=== PATIENT | male | born 1940 | race Caucasian/White ===

== ENCOUNTER → 2019-07-14 13:54 | Outpatient (BNVA) | payer MEDICARE, OTHER, SELFPAY | PROVIDERS: Family Provider Family Medicine; PCP Family Medicine; Visit Provider Specialist | DX: Z96.642 Presence of left artificial hip joint (principal) | CPT/HCPCS: 73502 ==

== ENCOUNTER 2022-04-12 11:16 | Inpatient (IN) | payer MEDICARE, OTHER, SELFPAY ==
[2022-04-12 11:25] VITALS: BP 111/58; PULSE 66; RESP 14; TEMP 36.6; O2SAT 94; BMI 23.7
--- NOTE | 2022-04-12 12:09 | XR_ITS ---
WS: [id number] EXAMINATION: XR chest 1V portable [id number] REASON FOR EXAM: dyspnea/cough COMPARISON: 12/21/2018 ORDER DATE: 04/12/2022 12:11 PM TECHNIQUE: A single, portable frontal chest x-ray was obtained. X-RAY FINDINGS: There is a prominent right lower lobe infiltrate and small parapneumonic pleural effusion. Cardiomediastinal silhouette is normal. No evidence for pulmonary edema. Soft tissue and osseous structures are unremarkable. No tubes or lines are present. XR/XR chest 1V portable [id number] IMPRESSION: Right lower lobe pneumonia with small effusion
--- NOTE | 2022-04-12 12:09 | CT_ITS ---
WS: [id number] EXAMINATION: CT head wo con* [id number] REASON FOR EXAM: closed head injury loss conscious COMPARISON: 10/20/2018 ORDER DATE: 04/12/2022 12:15 PM TOTAL EXAM DLP: 1218.[address] scans at [facility] use at least one of these dose optimization techniques: automated ex posure control; mA and/or kV adjustment per patient size (includes targeted exams where dose is match ed to clinical indication); or iterative reconstruction. TECHNIQUE: AXIAL IMAGING WITH 2-D REFORMATS WITHOUT CONTRAST FINDINGS: Extra axial spaces: Normal in size and morphology for the patient's age.. Hemorrhage: No evidence of subarachnoid hemorrhage. Ventricular system: Normal in size and morphology for the patient's age.. Basal cisterns: The basilar cisterns are patent.. Cerebral parenchyma: There is a hypodensity throughout the cortex of the anterior left temporal lobe with effacement of the sulci suggesting acute subacute edema Midline shift: No midline shift or mass effect. . Cerebellum: Normal. Brainstem: Normal. ORBITS/FACIAL BONES/OTHER: Calvarium: Intact. Chronic sclerotic change in the posterior right mastoid process Vascular system: Normal. Visualized Paranasal sinuses: Clear. Visualized Orbits and facial bones: Normal. Visualized upper cervical spine: Normal. Sella and skull base: Grossly intact. CT/CT head wo con* [id number] IMPRESSION: Acute to subacute infarction in the left anterior temporal lobe
--- NOTE | 2022-04-12 12:24 | ED_ITS ---
HPI - Weakness General: Chief complaint: Weakness Stated complaint: N/V, weakness, fall, headpain Time Seen by Provider: 04/12/22 12:04 Source: patient Mode of arrival: ambulatory History of Present Illness: 81-year-old male presents emergency room complaining nausea vomiting. Just generally not feeling well all day yesterday then last night patient fell when he got up to go to the bathroom around 1 AM. He was able to get himself back to bed but could not get up this morning. When he fell he struck his head without loss of bowel and bladder control. He is not having any chest discomfort. No shortness of breath no cough no fever. Does have a headache and generalized myalgias. No dysuria urgency or frequency no hematochezia or melena. No hematemesis. MD Complaint: generalized weakness Onset (ago): hour(s) Duration: constant Location: generalized Relieving factors: none Exacerbating factors: none Associated symptoms: Reports decreased appetite, headache(s), myalgias and nausea; Denies chest pain, chills, confusion, melena, diaphoresis, dysuria, easy bruising, fever(s), short of breath, syncope or vomiting Review of Systems Const: Denies: fever(s), chills or diaphoresis ENMT: Denies: throat pain, ear or mastoid pain, nasal discharge or nasal congestion Card: Denies: chest pain or syncope Resp: Denies: dyspnea, productive cough or non-productive cough GI: Reports: nausea; Denies: abdominal pain, vomiting or melena : Denies: dysuria, urinary frequency or urinary urgency Skin/Breast: Denies: rash or pruritus Neuro: Reports: headache(s); Denies: confusion Darci/Lymph: Denies: easy bruising PFS ED PFSH: Surgical History (Updated 07/15/19 @ 12:23 by Cherelle Taylor MD) History of total left hip arthroplasty History of total right hip arthroplasty Social History Smoking and tobacco status: never smoked Alcohol intake: never Physical Exam Const: GENERAL APPEARANCE: cooperative and comfortable ORIENTATIO N/CONSCIOUSNESS: Yes awake, Yes oriented to person, Yes oriented to place and Yes oriented to time HENMT: COMMON NORMALS: normocephalic, atraumatic and hearing grossly normal bilaterally HEAD & SCALP: normocephalic and atraumatic Resp: COMMON NORMALS: normal respiratory effort, No retractions, No use of accessory muscles and clear to auscultation bilaterally AUSCULTATION: clear to auscultation bilaterally Cardio: COMMON NORMALS: regular rate, regular rhythm and No murmurs present (Cardio) RATE: regular rate RHYTHM: regular rhythm GI: COMMON NORMALS: Soft to palpation and No hepatosplenomegaly present AUSCULTATION: Yes normoactive bowel sounds PALPATION: Yes Soft to palpation, No Tenderness to palpation present (GI), No Guarding due to palpation present (GI) and Yes No hepatosplenomegaly present Extremity: COMMON NORMALS: normal to inspection, capillary refill normal, no clubbing, cyanosis or edema, no calf tenderness and no pedal edema Neuro: SENSORIUM/ORIENTATION: Yes oriented to person, Yes oriented to place and Yes oriented to time Skin: COMMON NORMALS: no rashes or lesions noted GENERAL SKIN EXAM: no rashes or lesions noted Course Vital Signs: Vital signs: Vital Signs Temperature 97.8 F 04/12/22 11:25 Pulse Rate 66 04/12/22 11:25 Respiratory Rate 14 04/12/22 11:25 Blood Pressure 130/72 04/12/22 13:33 Pulse Oximetry 96 04/12/22 13:33 Oxygen Delivery Me thod 04/12/22 13:33 MDM - Weakness Medical Decision Making Patient has acute left temporal CVA. He has a stroke score at this point of 0. I thought he maybe had a little bit of right facial droop but his son confirms that is normal facial appearance he was has a little bit of droop in the right corner of his mouth that is not new otherwise rest of his NIH is 0. He has a large right lower lobe pneumonia with a white count of 23,000 cultures done will admit discussed with hospitalist orders written aspirin given evaluation for secondary stroke prevention needed inpatient. Medical Records I reviewed the patient's medical records. Lab Data I reviewed the patient's lab results. 04/12/22 12:45 04/12/22 12:45 Radiology Impressions Chest X-Ray 04/12/22 12:09 IMPRESSION: Right lower lobe pneumonia with small effusion Head CT 04/12/22 12:09 IMPRESSION: Acute to subacute infarction in the left anterior temporal lobe Laboratory Results WBC 23.6 10^3/uL (4.0-10.0) H 04/12/22 12:45 RBC 4.50 10^6/uL (4.1-5.3) 04/12/22 12:45 Hgb 13.0 g/dL (11.7-16.6) 04/12/22 12:45 Hct 40.0 % (42.0-52.0) L 04/12/22 12:45 MCV 88.9 fl (80-94) 04/12/22 12:45 MCH 28.9 pg (28.0-34.0) 04/12/22 12:45 MCHC 32.5 g/dL (30.0-36.0) 04/12/22 12:45 RDW 14.6 % (12.1-15.1) 04/12/22 12:45 Plt Count 271 10^3/cmm (130-400) 04/12/22 12:45 MPV 9.4 fL (7.4-10.4) 04/12/22 12:45 Neut % (Auto) 89.3 % 04/12/22 12:45 Lymph % (Auto) 5.2 % 04/12/22 12:45 [place] % (Auto) 4.5 % 04/12/22 12:45 Eos % (Auto) 0.0 % 04/12/22 12:45 Baso % (Auto) 0.3 % 04/12/22 12:45 Neut # (Auto) 21.06 10^3/uL (1.8-7.7) H 04/12/22 12:45 Lymph # (Auto) 1.2 10^3/uL (0.8-4.8) 04/12/22 12:45 [place] # (Auto) 1.1 10^3/uL (0.2-0.9) H 04/12/22 12:45 Eos # (Auto) 0.0 10^3/uL (0.0-0.8) 04/12/22 12:45 Baso # (Auto) 0.1 10^3/uL (0.0-0.1) 04/12/22 12:45 Nucleated RBC % (auto) 0 % 04/12/22 12:45 Nucleated RBCs # 0.0 /100WBC 04/12/22 12:45 Sodium 134 mmol/L (136-145) L 04/12/22 12:45 Potassium 3.8 mmol/L (3.5-5.1) 04/12/22 12:45 Chloride 97 mmol/L (98-107) L 04/12/22 12:45 Carbon Dioxide 28 mmol/L (22-29) 04/12/22 12:45 Anion Gap 12.8 (5-19) 04/12/22 12:45 BUN 18 mg/dL (8-23) 04/12/22 12:45 Creatinine 1.1 mg/dL (0.7-1.2) 04/12/22 12:45 GFR Calculation Not Reportable 04/12/22 12:45 Glucose 94 mg/dL (65-115) 04/12/22 12:45 Calculated Osmolality 280 mOsm/kg (285-295) L 04/12/22 12:45 Calcium 9.1 mg/dL (8.5-10.5) 04/12/22 12:45 Total Bilirubin 1.1 mg/dL (0.15-1.2) 04/12/22 12:45 AST 12 U/L (0-40) 04/12/22 12:45 ALT 8 U/L (0-41) 04/12/22 12:45 Alkaline Phosphatase 99 U/L (40-130) 04/12/22 12:45 Total Protein 6.9 g/dL (6.6-8.7) 04/12/22 12:45 Albumin 2.9 g/dL (3.5-5.2) L 04/12/22 12:45 Globulin 4.0 g/dL (1.3-4.6) 04/12/22 12:45 Discharge Plan Discharge Patient Disposition: Admitted As Inpatient Clinical Impression: Acute CVA (cerebrovascular accident), Right lower lobe pneumonia Condition: Stable Prescriptions: No Action ibuprofen 200 mg Tablet 400 mg PO Q6H PRN (Reason: Pain) atorvastatin 40 mg tablet 40 mg PO BEDTIME trazodone 100 mg tablet 100 mg PO BEDTIME Referrals: Gideon Yepez DO [Primary Care Provider] - Coding Level of Care Code ED Training And Development Specialist for g Fwd Exam Detailed NIH stroke score NIHSS Level Of Consciousness - 1a: 0 Level Of Consciousness Questions - 1b: Both Correct Level Of Consciousness Commands - 1c: Both Correct Best Gaze - 2: Normal Visual Garcia - 3: No Visual Loss Facial Palsy - 4: Normal Motor Arm Right - 5: No Drift Motor Arm Left - 5: No Drift Motor Leg Right - 6: No Drift Motor Leg Left - 6: No Drift Limb Ataxia - 7: Absent Sensory - 8: Normal Best Language - 9: No Aphasia Dysarthia - 10: Normal Extinction And Inattention - 11: 0 Score Total Score: 0
--- NOTE | 2022-04-12 12:40 | ECG_ITS ---
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 Measurements Intervals [place] Rate: 77 P: 55 HI: 170 QRS: 43 QRSD: 86 T: 40 QT: 389 QTc: 443 Interpretive Statements SINUS RHYTHM Compared to ECG 12/21/2018 08:44:06 Sinus bradycardia no longer present ST (T wave) deviation no longer present Electronically Signed On 04-12-2022 13:04:36 MILL BEAM FITTER by Rita Friedman M.D. [id number]
[2022-04-12 12:59] LABS: Basophils # 0.1 10^3/uL (0.0-0.1); Basophils % 0.3 %; Lymphocytes # 1.2 10^3/uL (0.8-4.8); Lymphocytes % 5.2 %; Mean Corpuscular HGB Conc 32.5 g/dL (30.0-36.0); Mean Corpuscular Hemoglobin 28.9 pg (28.0-34.0); Mean Corpuscular Volume 88.9 fl (80-94); Mean Platelet Volume 9.4 fL (7.4-10.4); Monocytes # 1.1 10^3/uL (0.2-0.9); Monocytes % 4.5 %; Neutrophils # 21.06 10^3/uL (1.8-7.7); Neutrophils % 89.3 %; Nucleated Red Blood Cells % 0 %; Platelet Count 271 10^3/cmm (130-400); Red Cell Distribution Width 14.6 % (12.1-15.1); White Blood Count 23.6 10^3/uL (4.0-10.0)
[2022-04-12 13:16] LABS: Alanine Aminotransferase 8 U/L (0-41); Albumin Level 2.9 g/dL (3.5-5.2); Alkaline Phosphatase 99 U/L (40-130); Anion Gap 12.8 (5-19); Aspartate Amino Transferase 12 U/L (0-40); Blood Urea Nitrogen 18 mg/dL (8-23); Calcium 9.1 mg/dL (8.5-10.5); Carbon Dioxide 28 mmol/L (22-29); Chloride 97 mmol/L (98-107); Glucose 94 mg/dL (65-115); Osmolality Calculated 280 mOsm/kg (285-295); Potassium 3.8 mmol/L (3.5-5.1); Sodium 134 mmol/L (136-145); Total Bilirubin 1.1 mg/dL (0.15-1.2); Total Protein 6.9 g/dL (6.6-8.7)
[2022-04-12 13:33] VITALS: BP 130/72; O2SAT 96
[2022-04-12 13:35] LABS: Add Urine Microscopic? NO; Charge for UA Resulting for Rev
[2022-04-12] MEDS: ondansetron 2 mg/ML SDV 2 mL 4 MG IVP ×2 (13:51→23:00)
[2022-04-12] MEDS: sodium chloride 0.9% 1,000 ML 999 ML IV (13:51)
[2022-04-12] MEDS: levofloxacin-dextrose 5 % 750 MG/150 ML PREMIX 100 MG IV (13:51)
[2022-04-12 14:02] LABS: Bilirubin Urine 2+ (Negative); Blood Urine Neg (Negative); Glucose Urine UA Norm (Normal); Ketones Urine 1+ (Negative); Leukocyte Esterase Urine Negative (Negative); Nitrate Urine Negative (Negative); Protein Urine Neg (Negative); Urine Appearance Clear (CLEAR); Urine Color Dark Yellow (Yellow); Urobilinogen Urine 4 mg/dL (Negative); pH Urine 5 (5-7)
[2022-04-12] MEDS: acetaminophen 500 mg Tablet 1000 MG PO (14:14)
[2022-04-12] MEDS: aspirin 81 mg Chew Tablet 324 MG PO (15:56)
[2022-04-12] MEDS: sodium chloride 0.9% 1,000 ML 100 ML IV (15:56)
--- NOTE | 2022-04-12 17:36 | P.HP_ITS ---
Providers/Chief Complaint Admitting Physician: Junaid Joshua MD Primary Care Provider: Gideon Yepez DO Chief Complaint: N/V, weakness, fall, headpain History of Present Illness Mike Ellison is a 81 year old male with a past medical history significant for osteoarthritis presented with nausea and emesis x2 days. He also reports that he fell going to the bathroom early this morning around 1 AM. He was able to get back to bed but can get up this morning. He reports that he did hit his head when he fell. He denies any loss of bowel or bladder control. Denies history of seizures. Denies chest pain. Denies any significant shortness of breath, cough, or fevers. Does endorse associated symptoms of generalized malaise and headache. Denies any dysuria, hematochezia or melena. He denies any focal weakness. Denies changes to speech. In the ED was found to have p neumonia throat throat. Review of Systems Narrative: A complete review of systems was obtained and is negative except as stated in HPI. Medications/Allergies Home Medications Medication Instructions Recorded Confirmed Last Taken Type atorvastatin 40 mg tablet 40 mg PO BEDTIME 04/12/22 04/12/22 04/11/22 History ibuprofen 200 mg tablet 400 mg PO Q6H PRN Pain 04/12/22 04/12/22 Unknown History trazodone 100 mg tablet 100 mg PO BEDTIME 04/12/22 04/12/22 04/11/22 History Allergies Allergy/AdvReac Type Severity Reaction Status Date / Time Penicillins Allergy Unknown Verified 04/12/22 12:18 PFSH Acute PFSH: Medical History Osteoarthritis Surgical History History of total left hip arthroplasty History of total right hip arthroplasty Family History (Updated 04/12/22 @ 17:46 by Junaid Joshua MD) Father Stroke Social History (Updated 04/12/22 @ 17:39 by Junaid Joshua MD) Smoking and tobacco status: never smoked Alcohol intake: never Substance/Drug Use: never Vitals/I&O/Wt Last Vital Signs Temp 97.8 F 04/12/22 11:25 Pulse 66 04/12/22 11:25 Resp 14 04/12/22 11:25 BP 130/72 04/12/22 13:33 Pulse Ox 96 04/12/22 13:33 O2 Del Method 04/12/22 16:39 04/12/22 04/12/22 04/12/22 06:59 14:59 22:59 Intake Total 1000 / 1000 150 / 1150 Balance 1000 / 1000 150 / 1150 Weight last 48 hrs Weight 79.379 kg Physical Exam Narrative: General: Patient is awake and alert. Head: Normocephalic. Atraumatic. EOM intact. He is hard of hearing. Neck: No JVD. Cardiovascular: RRR. No gallops. No murmurs. No peripheral edema. Lungs: Rhonchi in right lung base, no use of accessory muscles, no crackles or wheezes. Skin: No jaundice. No rashes. Abdomen: Normal bowel sounds, abdomen soft and nontender. Genito Urinary: Genital exam not performed since complaints not related. Rectal: Rectal exam not performed since no symptoms indicated blood loss. Extremities: No cyanosis or clubbing. Musculoskeletal: 5/5 strength, normal range of motion, no swollen or erythematous joints. Neurological: Moves all 4 extremities. No myoclonus. Data 04/12/22 12:45 04/12/22 12:45 Micro: Microbiology 04/12/22 13:52 Blood Culture - Preliminary Blood SPECIMEN COLLECTED 04/12/22 13:50 Blood Culture - Preliminary Blood SPECIMEN COLLECTED A&P Assessment and plan (1) Right lower lobe pneumonia: Status post levofloxacin and in the ED Strep urinary antigen ordered Legionella urinary antigen ordered Start ceftriaxone Start azithromycin Encourage pulmonary toilet (2) Acute CVA (cerebrovascular accident): Not a candidate for tPA Cardiac monitoring Loaded with aspirin Start aspirin 81 mg daily Load Plavix Start daily Plavix Continue high intensity statin Physical and Occupational Therapy (3) Physical deconditioning: This is likely secondary to his recent pneumonia PT/OT Treat underlying infection (4) Osteoarthritis: Continue home ibuprofen as needed Plan DVT prophylaxis: Lovenox CODE STATUS: Full code Attestations Medical Necessity Statement*: Patient requires admission for acute to subacute stroke as well as significant pneumonia with debility physical deconditioning requiring IV antibiotics and supportive care with expected hospitalization to cross treatment eyes. Coding Level of Care Code Acute Statistical Technician for Bisi Serrano Diagnoses Right lower lobe pneumonia J18.9 Acute CVA (cerebrovascular accident) I63.9 Physical deconditioning R53.81 Osteoarthritis M19.90
[2022-04-12 17:47] VITALS: BP 128/66; PULSE 86; RESP 17; TEMP 36.5; O2SAT 93
[2022-04-12] MEDS: cefTRIAXone 1,000 MG in sodium chloride 0.9% (plus) 50 ML 100 MG IV (17:48)
[2022-04-12] MEDS: clopidogrel 300 mg Tablet PO (17:48)
[2022-04-12] MEDS: enoxaparin 40 mg/0.4 mL Syringe SUBCUT (18:01)
[2022-04-12 20:00] VITALS: BP 105/56; PULSE 84; RESP 18; TEMP 36.8; O2SAT 93
[2022-04-12] MEDS: trazodone 100 mg Tablet PO (20:00)
[2022-04-12] MEDS: atorvastatin 40 mg Tablet PO (20:00)
[2022-04-12] MEDS: azithromycin 250 MG in sodium chloride 0.9% 250 ML IV (20:06)
[2022-04-12 22:00] VITALS: PULSE 97
[2022-04-13] VITALS (10 sets, daily range): BP systolic 106–133; BP diastolic 54–69; PULSE 72–108; RESP 15–22; TEMP 36.6–37.3; O2SAT 90–94
[2022-04-13] MEDS: sodium chloride 0.9% 1,000 ML 100 ML IV ×2 (02:52→18:29)
[2022-04-13 03:59] LABS: Basophils % 0.2 %; Hematocrit 37.4 % (42.0-52.0); Lymphocytes # 0.9 10^3/uL (0.8-4.8); Lymphocytes % 4.2 %; Mean Corpuscular HGB Conc 32.1 g/dL (30.0-36.0); Mean Corpuscular Hemoglobin 28.6 pg (28.0-34.0); Mean Corpuscular Volume 89.3 fl (80-94); Mean Platelet Volume 9.9 fL (7.4-10.4); Monocytes # 0.7 10^3/uL (0.2-0.9); Monocytes % 3.3 %; Neutrophils % 91.5 %; Nucleated Red Blood Cells % 0 %; Platelet Count 226 10^3/cmm (130-400); Red Blood Count 4.19 10^6/uL (4.1-5.3); Red Cell Distribution Width 14.8 % (12.1-15.1)
[2022-04-13 04:23] LABS: Blood Urea Nitrogen 18 mg/dL (8-23); Calcium 8.5 mg/dL (8.5-10.5); Carbon Dioxide 24 mmol/L (22-29); Chloride 100 mmol/L (98-107); Glucose 93 mg/dL (65-115); Magnesium 1.5 mg/dL (1.7-2.3); Osmolality Calculated 276 mOsm/kg (285-295); Phosphorus 1.8 mg/dL (2.5-4.5); Sodium 132 mmol/L (136-145)
[2022-04-13 04:25] LABS: Anion Gap 11.4 (5-19); Potassium 3.4 mmol/L (3.5-5.1)
[2022-04-13] MEDS: aspirin 81 mg EC Tablet PO (08:19)
[2022-04-13] MEDS: clopidogrel 75 mg Tablet PO (08:19)
[2022-04-13] MEDS: ibuprofen 200 mg Tablet 400 MG PO ×2 (08:20→20:29)
--- NOTE | 2022-04-13 10:42 | P.PN_ITS ---
Subjective Subjective: Patient endorses generalized fatigue but denies any focal weakness. Denies dysphagia. Denies cough or shortness of breath. Wants to be DNR. Medications: Reviewed: Yes Vitals/I&O/Wt Last Vital Signs Temp 99.2 F 04/13/22 07:18 Pulse 102 H 04/13/22 07:18 Resp 18 04/13/22 07:18 BP 111/54 04/13/22 07:18 Pulse Ox 94 04/13/22 07:18 O2 Del Method 04/13/22 07:18 O2 Flow Rate 1.5 04/13/22 07:18 04/12/22 04/13/22 04/13/22 22:59 06:59 14:59 Intake Total 450 / 1450 1000 / 2450 Output Total 550 / 550 175 / 175 Balance 450 / 1450 450 / 1900 -175 / -175 Weight last 48 hrs Weight 79.379 kg Physical Exam Narrative: General: Patient is awake and alert. Head: Normocephalic. Atraumatic. EOM intact. He is hard of hearing. Neck: No JVD. Cardiovascular: RRR. No gallops. No murmurs. No peripheral edema. Lungs: Rhonchi in right lung base, no use of accessory muscles, no crackles or wheezes. On room air. Skin: No jaundice. No rashes. Abdomen: Normal bowel sounds, abdomen soft and nontender. Genito Urinary: Genital exam not performed since complaints not related. Rectal: Rectal exam not performed since no symptoms indicated blood loss. Extremities: No cyanosis or clubbing. Musculoskeletal: 5/5 strength, normal range of motion, no swollen or erythematous joints. Neurological: Moves all 4 extremities. No myoclonus. Data 04/13/22 03:31 04/13/22 03:31 Micro: Microbiology 04/12/22 13:30 Legionella Urinary Antigen - Final Urine,Voided 04/12/22 13:52 Blood Culture - Preliminary Blood SPECIMEN COLLECTED 04/12/22 13:50 Blood Culture - Preliminary Blood SPECIMEN COLLECTED A&P Assessment and plan (1) Right lower lobe pneumonia: Marked leukocytosis Follow up strep and legionella urinary ag Continue ceftriaxone Continue azithromycin Encourage pulmonary toilet (2) Acute CVA (cerebrovascular accident): Continue aspirin Continue Plavix Continue high intensity statin Physical and Occupational Therapy (3) Physical deconditioning: This is likely secondary to his recent pneumonia PT/OT Treat underlying infection (4) Osteoarthritis: Continue home ibuprofen as needed Plan DVT prophylaxis: Lovenox CODE STATUS: Full code Attestations Medical Necessity Statement*: Patient requires ongoing hospitalization for IV antibiotics, telemetry and PT evaluation with expected hospitalization to cross two midnights. Coding Level of Care Code Acute Welder Apprentice Arc for [facility] Diagnoses Right lower lobe pneumonia J18.9 Acute CVA (cerebrovascular accident) I63.9 Physical deconditioning R53.81 Osteoarthritis M19.90
[2022-04-13] MEDS: oxyCODONE 5 mg IR Tab/Cap PO (11:49)
[2022-04-13 12:57] LABS: Total Bilirubin 0.9 mg/dL (0.15-1.2)
--- NOTE | 2022-04-13 16:28 | PC.OT ---
OT evaluation completed, services not indicated. Recommendation made to nursing for home safety evaluation with home discharge from hospital.
[2022-04-13] MEDS: vancomycin 1,000 MG in sodium chloride 0.9% 250 ML 250 MG IV (16:56)
[2022-04-13] MEDS: enoxaparin 40 mg/0.4 mL Syringe SUBCUT (18:30)
[2022-04-13] MEDS: cefTRIAXone 1,000 MG in sodium chloride 0.9% (plus) 50 ML 100 MG IV (18:30)
[2022-04-13] MEDS: acetaminophen 325 mg Tablet 650 MG PO (19:16)
[2022-04-13] MEDS: trazodone 100 mg Tablet PO (20:24)
[2022-04-13] MEDS: atorvastatin 40 mg Tablet PO (20:24)
[2022-04-13] MEDS: azithromycin 250 MG in sodium chloride 0.9% 250 ML IV (20:24)
[2022-04-14] VITALS (35 sets, daily range): BP systolic 98–145; BP diastolic 53–86; PULSE 70–142; RESP 18–34; TEMP 36.3–36.9; O2SAT 77–96
[2022-04-14] MEDS: vancomycin 1,000 MG in sodium chloride 0.9% 250 ML 250 MG IV ×2 (02:40→15:44)
--- NOTE | 2022-04-14 03:42 | ECG_ITS ---
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 Measurements Intervals [place] Rate: 126 P: 0 MA: 0 QRS: 79 QRSD: 90 T: -21 QT: 311 QTc: 452 Interpretive Statements ATRIAL FIBRILLATION WITH RAPID VENTRICULAR RESPONSE NONSPECIFIC ST & T-WAVE ABNORMALITY Compared to ECG 04/12/2022 12:40:13 T-wave abnormality now present Sinus rhythm no longer present Electronically Signed On 04-14-2022 12:53:12 MUSEUM SERVICE SCHEDULER by Félix Almonte M.D. [id number]
[2022-04-14 04:03] LABS: Basophils % 0.2 %; Eosinophils # 0.3 10^3/uL (0.0-0.8); Eosinophils % 1.7 %; Hematocrit 36.1 % (42.0-52.0); Hemoglobin 11.2 g/dL (11.7-16.6); Lymphocytes # 0.9 10^3/uL (0.8-4.8); Lymphocytes % 5.9 %; Mean Corpuscular Hemoglobin 28.4 pg (28.0-34.0); Mean Corpuscular Volume 91.4 fl (80-94); Mean Platelet Volume 9.9 fL (7.4-10.4); Monocytes # 0.6 10^3/uL (0.2-0.9); Neutrophils # 12.85 10^3/uL (1.8-7.7); Neutrophils % 87.5 %; Nucleated Red Blood Cells % 0 %; Platelet Count 226 10^3/cmm (130-400); Red Blood Count 3.95 10^6/uL (4.1-5.3); Red Cell Distribution Width 14.9 % (12.1-15.1); White Blood Count 14.7 10^3/uL (4.0-10.0)
[2022-04-14] MEDS: metoprolol tartrate 1 mg/1 mL SDV 5 mL 5 MG IVP (04:07)
[2022-04-14] MEDS: metoprolol tartrate 25 mg Tablet PO ×2 (04:10→17:16)
[2022-04-14 04:22] LABS: Alanine Aminotransferase 6 U/L (0-41); Alkaline Phosphatase 80 U/L (40-130); Anion Gap 8.3 (5-19); Aspartate Amino Transferase 9 U/L (0-40); Blood Urea Nitrogen 17 mg/dL (8-23); Calcium 8.5 mg/dL (8.5-10.5); Carbon Dioxide 25 mmol/L (22-29); Chloride 99 mmol/L (98-107); Globulin 3.9 g/dL (1.3-4.6); Glucose 106 mg/dL (65-115); Magnesium 1.9 mg/dL (1.7-2.3); Osmolality Calculated 270 mOsm/kg (285-295); Phosphorus 1.9 mg/dL (2.5-4.5); Potassium 3.3 mmol/L (3.5-5.1); Sodium 129 mmol/L (136-145); Total Bilirubin 0.6 mg/dL (0.15-1.2); Total Protein 5.9 g/dL (6.6-8.7)
--- NOTE | 2022-04-14 04:26 | ECG_ITS ---
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 Measurements Intervals [place] Rate: 108 P: 0 [place]: 0 QRS: 33 QRSD: 88 T: -4 QT: 341 QTc: 458 Interpretive Statements ATRIAL FIBRILLATION WITH RAPID VENTRICULAR RESPONSE NONSPECIFIC T-WAVE ABNORMALITY ABNORMAL RHYTHM ECG Compared to ECG 04/14/2022 03:42:41 No significant changes Electronically Signed On 04-14-2022 12:53:19 RADIO ADJUSTER by Félix Almonte M.D. [id number]
[2022-04-14 04:45] LABS: Troponin T (5th) Once 12 ng/L (0-15)
--- NOTE | 2022-04-14 05:16 | PC.NURSE ---
Addendum entered by Theresa Infante RN 04/14/22 05:26: 0500 Patient transferred to ICU in stable condition. Original Note: 0310 Noticed rhythm change on monitor. Ekg performed, showed A fib RVR rate of 125. Rates up to [address] Mc, orders received for IV and PO Metoprolol. VSS. Tele strip placed in chart along with EKG. 0350 Patient now complaining of chest pain. Updated Dr Mc. Orders received for repeat EKG and troponins. 0435 Dr Mc at bedside. orders received to transfer patient to ICU. 0450 Report called to Leatha PARKER in ICU. 0515 Updated family member Yanira, questions answered.
[2022-04-14] MEDS: acetaminophen 325 mg Tablet 650 MG PO ×2 (05:19→12:20)
[2022-04-14] MEDS: lidocaine 2% viscous 15 ML, aluminum-mag hydrox-simethicon 30 ML, sucralfate oral liq 1 GM PO (05:19)
[2022-04-14] MEDS: sodium chloride 0.9% 250 ML IV (05:19)
[2022-04-14] MEDS: sodium chloride 0.9% 1,000 ML 100 ML IV (05:25)
[2022-04-14] MEDS: lidocaine 1% 5 ML in potassium chloride premix 100 ML 25 ML IV (06:39)
[2022-04-14] MEDS: aspirin 81 mg EC Tablet PO (08:02)
[2022-04-14] MEDS: apixaban 5 mg Tablet PO ×2 (08:02→19:36)
--- NOTE | 2022-04-14 09:07 | USCV_ITS ---
Mike Ellison Age: 81 Gender: M : 1940 Exam Date: 04/14/2022 11:42 Ordering Phys: Junaid Joshua MD Technologist: ANI [place] [facility] [place]: bacte[place], afib BP: 112 / 67 HR: 81 Rhythm: Sinus Technical Quality: Adequate MEASUREMENTS (Male / Female) Normal Values 2D ECHO LV Diastolic Diameter PLAX 5.3 cm 4.2 - 5.9 / 3.9 - 5.3 cm LV Systolic Diameter PLAX 4.0 cm IVS Diastolic Thickness 0.5 cm 0.6 - 1.0 / 0.6 - 0.9 cm IVS Systolic Thickness 0.7 cm LVPW Diastolic Thickness 0.6 cm 0.6 - 1.0 / 0.6 - 0.9 cm LVPW Systolic Thickness 0.8 cm LVOT Diameter 2.2 cm LV Ejection Fraction 2D Teich 49.6 % LV Ejection Fraction MOD 2C 50.0 % LV Ejection Fraction 2C AL 50.2 % LA Diameter 3.2 cm IVC Diameter 1.1 cm M-MODE Aortic Annulus Diameter 2.7 cm LA Ao Ratio MM 1.3 MV E Point Septal Separation 0.6 cm DOPPLER AV Peak Velocity 99.0 cm/s LVOT Peak Velocity 74.0 cm/s AV Area Cont Eq vti 3.3 cm squared AV Area Cont Eq pk 2.8 cm squared MV Area PHT 4.3 cm squared Mitral E to A Ratio 0.9 MV E' Velocity 45.0 cm/s Mitral E to MV E' Ratio 6.8 Mitral E to LV E' Lateral Ratio 6.7 Mitral E to LV E' Septal Ratio 7.0 TR Peak Velocity 237.0 cm/s TR Peak Gradient 22.5 mmHg TV Peak E Velocity 68.0 cm/s PV Peak Velocity 69.0 cm/s FINDINGS Left Ventricle Normal left ventricular size, systolic function and wall thickness, with no regional wall motion abnormalities. Grade I/IV diastolic dysfunction (abnormal relaxation filling pattern), normal to mildly elevated filling pressures. Left ventricular ejection fraction is estimated at 55 %. Right Ventricle Normal right ventricular size and systolic function. Right Atrium The right atrium is normal in size. Left Atrium The left atrium is normal in size. Mitral Valve Structurally normal mitral valve. Mild mitral valve regurgitation. Aortic Valve Structurally normal aortic valve without significant sclerosis or stenosis. There is no aortic regurgitation. Tricuspid Valve Tricuspid valve not well visualized. No tricuspid valve regurgitation. Pulmonic Valve Pulmonic valve not well visualized. Pericardium Normal pericardium without effusion. Aorta Normal ascending aorta dimension. IVC The inferior vena cava appears normal. CONCLUSIONS Normal left ventricular size, systolic function and wall thickness, with no regional wall motion abnormalities. Grade I/IV diastolic dysfunction (abnormal relaxation filling pattern), normal to mildly elevated filling pressures. Left ventricular ejection fraction is estimated at 55 %. Structurally normal mitral valve. Mild mitral valve regurgitation. There are no prior echocardiogram studies to compare. Dr. Félix Almonte MD (Electronically Signed) Final Date: 14 April 2022 16:02 S
[2022-04-14] MEDS: FUROsemide 10 mg/mL SDV 2mL 20 MG IVP (11:11)
--- NOTE | 2022-04-14 13:13 | P.PN_ITS ---
Subjective Subjective: Overnight, patient's blood pressure was soft and he went to atrial fibrillation with rapid ventricular rate. He denies any prior history of known atrial fibrillation. He reports generalized fatigue and weakness. Endorses dyspnea on exertion and shortness of breath. Denies fevers, chills, chest pain or focal neurological deficit. His [id number] is in the room later I updated her on his clinical course and plan of care. Medications: Reviewed: Yes Vitals/I&O/Wt Last Vital Signs Temp 97.7 F 04/14/22 05:30 Pulse 88 04/14/22 12:00 Resp 23 H 04/14/22 12:00 BP 125/76 04/14/22 12:00 Pulse Ox 77 L 04/14/22 12:00 O2 Del Method 04/14/22 11:17 O2 Flow Rate 2 04/14/22 11:17 04/13/22 04/14/22 04/14/22 22:59 06:59 14:59 Intake Total 2135 / 2427 1370 / 3797 460 / 460 Output Total 150 / 325 300 / 625 650 / 650 Balance 1984 1070 / 3172 -190 / -190 Physical Exam Narrative: General: Patient is awake. Acutely ill-appearing. Head: Normocephalic. Atraumatic. EOM intact. Very hard of hearing. Neck: No JVD. Cardiovascular: No gallops. No murmurs. Irregularly irregular rhythm. Normal rate. Lungs: Rhonchi in right lung base. Coarse breath sounds. Tachypneic. Skin: No jaundice. No rashes. Abdomen: Normal bowel sounds, abdomen soft and nontender. Genito Urinary: Genital exam not performed since complaints not related. Rectal: Rectal exam not performed since no symptoms indicated blood loss. Extremities: No cyanosis or clubbing. Musculoskeletal: No overt joint deformity. Neurological: Moves all 4 extremities. No myoclonus. Data 04/14/22 03:32 04/14/22 03:32 Micro: Microbiology 04/13/22 14:50 Blood Culture - Preliminary Blood SPECIMEN COLLECTED 04/13/22 14:44 Blood Culture - Preliminary Blood SPECIMEN COLLECTED 04/12/22 13:50 Blood Culture - Preliminary Blood Staphylococcus aureus 04/12/22 13:52 Blood Culture - Preliminary Blood NEGATIVE TO DATE 04/12/22 13:30 Legionella Urinary Antigen - Final Urine,Voided Bacterial Antigens - Final A&P Assessment and plan (1) Atrial fibrillation with RVR: Newly diagnosed Start apixaban Discontinue Plavix so he will not be on triple therapy Echocardiogram Continuous telemetry monitoring Cardiology consult (2) Staphylococcus aureus bacteremia: Blood culture (04/12) 1 of 2 positive for staph aureus Repeat blood cultures (04/13) are still preliminary Continue vancomycin, pharmacy to dose Transthoracic echocardiogram ordered Consider transesophageal echocardiogram pending TTE results and cultures (3) Acute CVA (cerebrovascular accident): Continue aspirin Discontinue Plavix Continue high intensity statin Physical and Occupational Therapy (4) Right lower lobe pneumonia: Leukocytosis improving Strep and legionella urinary ag are negative Continue ceftriaxone Continue azithromycin Encourage pulmonary toilet (5) Physical deconditioning: This is likely secondary to his recent pneumonia PT/OT Treat underlying infection (6) Osteoarthritis: Continue home ibuprofen as needed Plan DVT prophylaxis: Lovenox CODE STATUS: Full code Attestations Medical Necessity Statement*: Patient requires ongoing hospitalization for atrial fibrillation with rapid ventricular rate management, staph bacteremia, pn eumonia and stroke. Coding Level of Care Code Acute Stitcher Special Machine for [facility]wana Diagnoses Atrial fibrillation with RVR I48.91 Staphylococcus aureus bacteremia R78.81; B95.61 Acute CVA (cerebrovascular accident) I63.9 Right lower lobe pneumonia J18.9 Physical deconditioning R53.81 Osteoarthritis M19.90
--- NOTE | 2022-04-14 15:46 | P.CONIM_ITS ---
Providers/Reason For Consult Consulting Physician/Specialty*: Cardiovascular medicine Reason for Consult*: Atrial fibrillation Requesting Physician: Hospitalist Attending Physician: Junaid Joshua MD Primary Care Provider: Gideon Yepez DO History of Present Illness History of Present Illness Mike Ellison is a 81 year old male with no known prior history of heart disease who was admitted 2 days ago with nausea and vomiting. He was discovered to have a right lower lobe pneumonia and has had a stroke confirmed by CT scanning. He was originally placed on aspirin and Plavix. Overnight he went into atrial fibrillation with a rapid ventricular response. He has now spontaneously converted to sinus rhythm. He was started on apixaban and the Plavix was discontinued. He does not have a history of heart disease but has been depressed lately since his several months ago. Incidentally of blood cultures positive for Staph aureus. This is only 1 out of 4 blood cultures. His potassium has been slightly low at 3.3. He still has quite a productive cough. Currently as mentioned he is back in sinus rhythm. It appears as though amiodarone was ordered but it has not been started and given the fact that he is back in sinus rhythm. Review of Systems Narrative: Review of systems is negative other than depression. Medications/Allergies Home Medications Medication Instructions Recorded Confirmed Last Taken Type atorvastatin 40 mg tablet 40 mg PO BEDTIME 04/12/22 04/12/22 04/11/22 History ibuprofen 200 mg tablet 400 mg PO Q6H PRN Pain 04/12/22 04/12/22 Unknown History trazodone 100 mg tablet 100 mg PO BEDTIME 04/12/22 04/12/22 04/11/22 History Allergies Allergy/AdvReac Type Severity Reaction Status Date / Time Penicillins Allergy Unknown Verified 04/12/22 12:18 Current Medications Generic Name Dose Route Start Last Admin Trade Name Freq PRN Reason Stop Dose Admin Acetaminophen 650 mg 04/12/22 17:47 04/14/22 12:20 Acetaminophen 325 Mg Tablet PO 650 mg Q6H PRN Administration Mild/Mod Pain Or Temp >/= 101 Apixaban 5 mg 04/14/22 09:00 04/14/22 08:02 Apixaban 5 Mg Tablet PO 5 mg BID@0900,2100 SHELLY Administration Aspirin 81 mg 04/13/22 09:00 04/14/22 08:02 Aspirin 81 Mg Ec Tablet PO 81 mg DAILY SHELLY Administration Atorvastatin Calcium 40 mg 04/12/22 21:00 04/13/22 20:24 Atorvastatin 40 Mg Tablet PO 40 mg BEDTIME SHELLY Administration Sodium Chloride 1,000 mls @ 100 mls/hr 04/12/22 15:44 04/14/22 15:38 Sodium Chloride 0.9% IV Not Given .Q10H SHELLY Ceftriaxone Sodium 1,000 mg/ 50 mls @ 100 mls/hr 04/12/22 17:45 04/13/22 19:00 Sodium Chloride IV Infused Q24H SHELLY Infusion Protocol Azithromycin 250 mg/ Sodium 250 mls @ 250 mls/hr 04/12/22 17:45 04/13/22 21:24 Chloride IV Infused Q24H SHELLY Infusion Protocol Vancomycin HCl 1,000 mg/ 250 mls @ 250 mls/hr 04/13/22 15:00 04/14/22 15:44 Sodium Chloride IV 250 mls/hr Q12H SHELLY Administration Ibuprofen 400 mg 04/12/22 17:33 04/13/22 20:29 Ibuprofen 200 Mg Tablet PO 400 mg Q6H PRN Administration Pain Ondansetron HCl 4 mg 04/12/22 15:44 04/12/22 23:00 Ondansetron 2 Mg/Ml Sdv 2 Ml IVP 4 mg Q6H PRN Administration NAUSEA AND VOMITING Trazodone HCl 100 mg 04/12/22 21:00 04/13/22 20:24 Trazodone 100 Mg Tablet PO 100 mg BEDTIME SHELLY Administration PFSH Acute PFSH: Medical History Osteoarthritis Surgical History History of total left hip arthroplasty History of total right hip arthroplasty Family History (Updated 04/12/22 @ 17:46 by Junaid Joshua MD) Father Stroke Social History (Updated 04/12/22 @ 17:39 by Junaid Joshua MD) Smoking and tobacco status: never smoked Alcohol intake: never Substance/Drug Use: never Vitals/I&O/Wt Last Vital Signs Temp 97.7 F 04/14/22 05:30 Pulse 77 04/14/22 15:00 Resp 28 H 04/14/22 15:00 BP 127/70 04/14/22 14:30 Pulse Ox 93 04/14/22 15:00 O2 Del Method 04/14/22 11:17 O2 Flow Rate 2 04/14/22 11:17 04/14/22 04/14/22 04/14/22 06:59 14:59 22:59 Intake Total 1370 / 3797 460 / 460 Output Total 300 / 625 650 / 650 Balance 1070 / 3172 -190 / -190 Physical Exam Narrative: GENERAL: He is awake and alert and in no distress HEENT: Exam within normal limits. NECK: Supple without jugular vein distention. The carotid upstroke is normal without bruits. BACK: Exam normal. LUNGS: Clear. HEART: Regular rate and rhythm. ABDOMEN: Benign without organomegaly or tenderness. EXTREMITIES: No edema. NEUROLOGIC: Exam normal. SKIN: Unremarkable. Data 04/14/22 03:32 04/14/22 03:32 Micro: Microbiology 04/13/22 14:50 Blood Culture - Preliminary Blood NEGATIVE TO DATE 04/13/22 14:44 Blood Culture - Preliminary Blood NEGATIVE TO DATE 04/12/22 13:50 Blood Culture - Preliminary Blood Staphylococcus aureus 04/12/22 13:52 Blood Culture - Preliminary Blood NEGATIVE TO DATE 04/12/22 13:30 Legionella Urinary Antigen - Final Urine,Voided Bacterial Antigens - Final A&P Assessment and plan (1) Staphylococcus aureus bacteremia: (2) Atrial fibrillation with RVR: (3) Osteoarthritis: (4) Acute CVA (cerebrovascular accident): (5) Right lower lobe pneumonia: Plan He is back in sinus rhythm. The atrial fibrillation is probably transient and related to the pneumonia. I would not use amiodarone. Starting him on a beta- janet will probably be sufficient. I would start with metoprolol tartrate 25 mg twice daily. He will actually have a higher risk of bleeding with aspirin and apixaban as opposed to Plavix and apixaban. Consult Attestations Medical Necessity Statement: Hospitalization for treatment of pneumonia. Coding Level of Care Code New Pt Acute Political Consultant for [facility] Fwd Patient Type New History Detailed Exam Detailed Medical Decision Making Moderate Complexity Diagnoses Staphylococcus aureus bacteremia R78.81; B95.61 Atrial fibrillation with RVR I48.91 Osteoarthritis M19.90 Acute CVA (cerebrovascular accident) I63.9 Right lower lobe pneumonia J18.9
[2022-04-14] MEDS: cefTRIAXone 1,000 MG in sodium chloride 0.9% (plus) 50 ML 100 MG IV (17:16)
--- NOTE | 2022-04-14 17:57 | PC.NURSE ---
Patient alert and orientated. Been up to chair multiple times today. Using incentive spirometer as instructed. One dose of lasix given today and stopped fluids per Dr. Joshua. Lab called to report an error on Blood culture results. Awaiting another reading, if blood cultures remain negative plans to receive a PICC line will discontinue. Family bedside and involved in care. Very pleasant with staff.
[2022-04-14] MEDS: azithromycin 250 MG in sodium chloride 0.9% 250 ML IV (19:36)
[2022-04-14] MEDS: atorvastatin 40 mg Tablet PO (19:36)
[2022-04-14] MEDS: trazodone 100 mg Tablet PO (19:36)
--- NOTE | 2022-04-14 21:17 | PC.NURSE ---
Patient attempting to void per urinal and became very short of breath with labored respirations and face purple in color and O2 sat in the mid 80's. Assisted patient to sitting position and increased O2 to 4L NC. Patient hit elbow on side rail and has small skin tear, cleaned with normal saline and optifoam applied. Respirations currently less labored, bilat lung sounds coarse and wet, O2 saturation 94% currently. Patient requesting a castellanos. Notified Dr. Mc of patient change in condition, awaiting orders.
[2022-04-15] VITALS (13 sets, daily range): BP systolic 126–148; BP diastolic 58–82; PULSE 64–85; RESP 23–33; TEMP 36.7–37.4; O2SAT 90–95
[2022-04-15 02:19] LABS: Basophils % 0.3 %; Eosinophils # 0.1 10^3/uL (0.0-0.8); Eosinophils % 0.7 %; Hematocrit 38.8 % (42.0-52.0); Hemoglobin 12.4 g/dL (11.7-16.6); Lymphocytes # 0.9 10^3/uL (0.8-4.8); Lymphocytes % 5.6 %; Mean Corpuscular Hemoglobin 28.5 pg (28.0-34.0); Mean Corpuscular Volume 89.2 fl (80-94); Mean Platelet Volume 10.2 fL (7.4-10.4); Monocytes # 0.8 10^3/uL (0.2-0.9); Neutrophils # 14.01 10^3/uL (1.8-7.7); Neutrophils % 87.8 %; Nucleated Red Blood Cells % 0 %; Platelet Count 293 10^3/cmm (130-400); Red Blood Count 4.35 10^6/uL (4.1-5.3)
[2022-04-15 02:50] LABS: Albumin Level 2.2 g/dL (3.5-5.2); Anion Gap 5.9 (5-19); Blood Urea Nitrogen 16 mg/dL (8-23); Calcium 8.7 mg/dL (8.5-10.5); Carbon Dioxide 32 mmol/L (22-29); Chloride 101 mmol/L (98-107); Glucose 127 mg/dL (65-115); Phosphorus 2.3 mg/dL (2.5-4.5); Potassium 3.9 mmol/L (3.5-5.1); Sodium 135 mmol/L (136-145)
[2022-04-15 02:55] LABS: Vancomycin Trough 8.5 ug/mL (10-15)
[2022-04-15] MEDS: vancomycin 1,000 MG in sodium chloride 0.9% 250 ML 250 MG IV (03:01)
--- NOTE | 2022-04-15 07:57 | PM.PN ---
Subjective Subjective: Mike says he has a bad night. He cannot really describe what happened. According to the daytime nurse he became short of breath. I am not sure whether it was cardiac or pulmonary. I do not think he had any rhythm disturbances. This morning he is in sinus rhythm. He is breathing more comfortably this morning. Vitals/I&O/Wt Last Vital Signs Temp 98.8 F 04/15/22 04:00 Pulse 75 04/15/22 06:00 Resp 27 H 04/15/22 06:00 BP 137/69 04/15/22 06:00 Pulse Ox 93 04/15/22 06:00 O2 Del Method 04/15/22 06:00 O2 Flow Rate 4 04/15/22 06:00 04/14/22 04/15/22 04/15/22 22:59 06:59 14:59 Intake Total 1890 / 2350 250 / 2600 Output Total 200 / 850 500 / 1350 Balance 1690 / 1500 -250 / 1250 Weight last 48 hrs Weight 182 lb 14.4 oz Physical Exam Narrative: GENERAL: In general he looks and feels better this morning. HEENT: Exam within normal limits. NECK: Supple without jugular vein distention. The carotid upstroke is normal without bruits. BACK: Exam normal. LUNGS: Decreased breath sounds. Occasional wheezing. HEART: Regular rate and rhythm. ABDOMEN: Benign without organomegaly or tenderness. EXTREMITIES: No edema. NEUROLOGIC: Exam normal. SKIN: Unremarkable. Urinary Catheter Management: Beck: Cath Placed During This Visit: yes Reason for Continuing Indwelling Catheter: Accurate Measurement of Urinary Output in Critically Ill Patients Urinary Catheter Date of Insertion: 04/14/22 Urinary Catheter Time of Insertion: 21:30 Data 04/15/22 01:34 04/15/22 01:34 Micro: Microbiology 04/12/22 13:50 Blood Culture - Preliminary Blood Staphylococcus sp coag neg 04/13/22 14:50 Blood Culture - Preliminary Blood NEGATIVE TO DATE 04/13/22 14:44 Blood Culture - Preliminary Blood NEGATIVE TO DATE A&P Assessment and plan (1) Staphylococcus aureus bacteremia: (2) Physical deconditioning: (3) Osteoarthritis: (4) Acute CVA (cerebrovascular accident): (5) Right lower lobe pneumonia: Plan It is difficult to determine what last night's episode was. The nurses think that it was cardiac. It is hard to tell. His LV function was essentially normal by echo. His initial chest x-ray did not suggest heart failure. I will give him a dose of Lasix and potassium just in case. Fortunately, his rhythm remains stable and in sinus. Attestations Medical Necessity Statement*: Hospitalization for pneumonia and respiratory insufficiency. Coding Level of Care Code Established Pt Acute Eeo Officer for [facility] Fwd Patient Type Established History Detailed Exam Detailed Medical Decision Making Moderate Complexity Diagnoses Staphylococcus aureus bacteremia R78.81; B95.61 Physical deconditioning R53.81 Osteoarthritis M19.90 Acute CVA (cerebrovascular accident) I63.9 Right lower lobe pneumonia J18.9
[2022-04-15] MEDS: metoprolol tartrate 25 mg Tablet PO ×2 (08:39→17:05)
[2022-04-15] MEDS: FUROsemide 10 mg/mL SDV 2mL 20 MG IVP (08:39)
[2022-04-15] MEDS: clopidogrel 75 mg Tablet PO (08:39)
[2022-04-15] MEDS: apixaban 5 mg Tablet PO ×2 (08:39→20:14)
[2022-04-15] MEDS: potassium chloride ER 20 mEq Tablet PO (08:39)
--- NOTE | 2022-04-15 08:49 | PC.NURSE ---
Dr. Almonte rounded this morning, patients lungs sounded wet, informed Dr. Almonte, he listened to patient as well. Received an order for 20IVP of lasix and PO potassium per JUL. Patient resting at this time. He states he had a rough night, didnt get any rest from being so short of breath
[2022-04-15] MEDS: TRAMadol 50 mg Tablet 25 MG PO (09:20)
--- NOTE | 2022-04-15 10:13 | PC.CHAP ---
Pastoral Care Encounter/Spiritual Assessment Type of Contact [] Declined helper metal hanging visit [] Patient/Family/Request visit [] Outpatient visit [] Follow-up visit [] Physician referral [] Code/Alert [x] Routine visit [] Staff referral [] Actively dying [] Patient sleeping [x] Family support [] [] Out of room [] Palliative care [] [] Receiving care in room [] Pre-surgical visit [] Trauma [] Long length of stay [x] ICU visit [] Other: Relational/Emotional Strength [] Patient feels connected with others/family/visitors/staff [] Distress [] Loneliness/isolation [] Abandonment Spirituality of Patient [] Person of Lorri [] Attends Moravian of their Lorri [] Believes in Prayer [] Reads Bible or Amish materials [] There are Spiritual issues to be addressed Software Controls Engineer Interventions [x] Prayer [] Active listening [] Non-anxious presence [] Spiritual/emotional support [] Crisis/trauma care [] Spiritual counseling [] Bereavement support [] Provided bereavement packet [] Provided Bible/devotional materials [] Provided toy/stuffed animal, coloring book to patient or family member [] Provided Communion [] Anointing/[place] [] Salvation [x] Completed spiritual assessment [] Other: Impact on Illness or Injury [] Angry [] Fearful [] Anxious [] Often cries [] Exhaustion [] Unable to work [] Unable to attend episcopalian [] Unable to walk/stand [] Unable to read [] Unable to drive [] Unable to eat/drink [] Unable to sleep [] Unable to be with family [] Patient intubated [] Other: Summary Time spent with patient
--- NOTE | 2022-04-15 11:54 | PC.SOCIAL ---
Pg 2 IMM Explained to pt Pg 2 IMM. No questions voiced. Provided pt a copy. Initialed, dated, & timed a copy & placed in chart.
[2022-04-15] MEDS: vancomycin 1,500 MG/300 ML PIGGYBACK 200 MG IV (12:01)
--- NOTE | 2022-04-15 13:18 | USCV_ITS ---
Mike Ellison Age: 81 Gender: M : 1940 Exam Date: 04/15/2022 13:36 Ordering Phys: Osorio Villatoro MD Technologist: CT Exam Location: [facility] [place]_ Indication: tia, stenosis Risk Factors: Previous Vascular Surgery: Right Brachial BP: / Left Brachial BP: / Right Left Velocity (cm/s) Spectral Plaque Velocity (cm/s) Spectral Plaque Syst/Diast Broadening Syst/Diast Broadening 68.40/ 13.20 Prox CCA 100.30/ 15.40 61.30/ 15.80 Mid CCA 89.30 / 16.50 63.10/ 13.10 Distal CCA 77.20 / 14.30 73.90/ 14.20 Prox ICA 64.10 / 12.80 71.90/ 16.20 Mid ICA 58.40 / 13.60 74.90/ 18.20 Distal ICA 77.40 / 15.60 83.20 ECA 79.40 1.10 ICA/CCA 0.77 Antegrade Vertebral Antegrade 49.60/ 13.20 cm/s 41.00/ 9.40 cm/s Bi Subclavian Bi 105.8 209.6 0 0 FINDINGS Comparison: none available. No significant elevation of systolic or diastolic velocities. Waveforms are normal. Mild carotid atherosclerosis in the bifurcations. Antegrade vertebral arteries. CONCLUSIONS Bilateral ICA stenosis less than 50%. Mild carotid atherosclerosis. Dr. Darlene Rawls DO (Electronically Signed) Final Date: 15 April 2022 15:00 S
--- NOTE | 2022-04-15 14:18 | PM.PN ---
Subjective Subjective: Patient was seen this morning, daughter at bedside, he does report increased shortness of breath this morning, no fevers, no chills, does report shortness of breath with exertion Vitals/I&O/Wt Last Vital Signs Temp 99.3 F 04/15/22 12:00 Pulse 66 04/15/22 12:00 Resp 26 H 04/15/22 12:00 BP 129/66 04/15/22 12:00 Pulse Ox 94 04/15/22 12:00 O2 Del Method 04/15/22 08:00 O2 Flow Rate 2 04/15/22 08:00 04/14/22 04/15/22 04/15/22 22:59 06:59 14:59 Intake Total 1890 / 2350 250 / 2600 510 / 510 Output Total 200 / 850 500 / 1350 Balance 1690 / 1500 -250 / 1250 510 / 510 Weight last 48 hrs Weight 82.962 kg Physical Exam Const: COMMON NORMALS: no acute distress and patient oriented x3 Resp: COMMON NORMALS: normal respiratory effort, No retractions and No use of accessory muscles AUSCULTATION: crackles Cardio: COMMON NORMALS: regular rate, regular rhythm, S1 normal heart sound present and S2 normal heart sound present RATE: regular rate RHYTHM: regular rhythm HEART SOUNDS: S1 normal heart sound present and S2 normal heart sound present GI: COMMON NORMALS: Normal to inspection, nondistended, normoactive bowel sounds present and non-tender Extremity: COMMON NORMALS: no pedal edema Neuro: COMMON NORMALS: patient oriented x3 Psych: COMMON NORMALS: mental status grossly normal Urinary Catheter Management: Beck: Cath Placed During This Visit: yes Reason for Continuing Indwelling Catheter: Accurate Measurement of Urinary Output in Critically Ill Patients Urinary Catheter Date of Insertion: 04/14/22 Urinary Catheter Time of Insertion: 21:30 Data 04/15/22 01:34 04/15/22 01:34 Micro: Microbiology 04/12/22 13:50 Blood Culture - Preliminary Blood Staphylococcus haemolyticus 04/13/22 14:50 Blood Culture - Preliminary Blood NEGATIVE TO DATE 04/13/22 14:44 Blood Culture - Preliminary Blood NEGATIVE TO DATE A&P Assessment and plan (1) Atrial fibrillation with RVR: Newly diagnosed Continue apixaban Aspirin has been discontinued Echocardiogram Normal left ventricular size, systolic function and wall ?thickness, with no regional wall motion abnormalities. Grade ?I/IV diastolic dysfunction (abnormal relaxation filling ?pattern), normal to mildly elevated filling pressures. Left ?ventricular ejection fraction is estimated at 55 %. ?Structurally normal mitral valve. Mild mitral valve ?regurgitation. ?There are no prior echocardiogram studies to compare. Continuous telemetry monitoring Cardiology consult (2) Staphylococcus aureus bacteremia: Blood culture (04/12) 1 of 2 positive for coagulase-negative staph, staph hemolyticus, likely contamination The initial read was read incorrectly, this was clarified with the lab Repeat blood cultures (04/13) are still preliminary Will discontinue vancomycin (3) Acute CVA (cerebrovascular accident): Continue Plavix Discontinue aspirin Continue high intensity statin Physical and Occupational Therapy (4) Right lower lobe pneumonia: Leukocytosis improving Strep and legionella urinary ag are negative Continue ceftriaxone Continue azithromycin Encourage pulmonary toilet (5) Physical deconditioning: This is likely secondary to his recent pneumonia PT/OT Treat underlying infection (6) Osteoarthritis: Continue home ibuprofen as needed Plan DVT prophylaxis: Lovenox CODE STATUS: Full code Plan for today, looks fluid overloaded, crackles on exam has received Lasix, potassium continue to monitor, moved to CICU, will consider additional Lasix dosing based on clinical progress Attestations Medical Necessity Statement*: Patient requires hospitalization for pneumonia, CVA, fluid overload, A. fib Coding Level of Care Code Acute Material Control Manager for [facility]wana Diagnoses Atrial fibrillation with RVR I48.91 Staphylococcus aureus bacteremia R78.81; B95.61 Acute CVA (cerebrovascular accident) I63.9 Right lower lobe pneumonia J18.9 Physical deconditioning R53.81 Osteoarthritis M19.90
[2022-04-15] MEDS: azithromycin 250 mg Tablet PO (17:05)
[2022-04-15] MEDS: cefTRIAXone 1,000 MG in sodium chloride 0.9% (plus) 50 ML 100 MG IV (17:06)
[2022-04-15] MEDS: acetaminophen 325 mg Tablet 650 MG PO (17:14)
--- NOTE | 2022-04-15 17:44 | PC.NURSE ---
Daughter in Law Tory bedside most of the shift, would appreciate a phone call if patient is transferred to another unit or any changes. Number is [phone] Rizwana
[2022-04-15] MEDS: atorvastatin 40 mg Tablet PO (20:14)
[2022-04-15] MEDS: trazodone 100 mg Tablet PO (20:14)
[2022-04-16] VITALS (8 sets, daily range): BP systolic 111–144; BP diastolic 53–66; PULSE 61–84; RESP 20–27; TEMP 36.6–36.7; O2SAT 90–93; BMI 24.2
[2022-04-16] MEDS: TRAMadol 50 mg Tablet 25 MG PO (02:27)
[2022-04-16 03:16] LABS: Basophils % 0.3 %; Eosinophils # 0.2 10^3/uL (0.0-0.8); Eosinophils % 2.1 %; Hematocrit 39.1 % (42.0-52.0); Hemoglobin 12.4 g/dL (11.7-16.6); Lymphocytes # 1.1 10^3/uL (0.8-4.8); Mean Corpuscular HGB Conc 31.7 g/dL (30.0-36.0); Mean Corpuscular Hemoglobin 28.3 pg (28.0-34.0); Mean Corpuscular Volume 89.3 fl (80-94); Monocytes # 0.8 10^3/uL (0.2-0.9); Monocytes % 7.9 %; Neutrophils # 8.34 10^3/uL (1.8-7.7); Neutrophils % 78.9 %; Nucleated Red Blood Cells % 0 %; Platelet Count 309 10^3/cmm (130-400); Red Blood Count 4.38 10^6/uL (4.1-5.3); Red Cell Distribution Width 15.3 % (12.1-15.1); White Blood Count 10.6 10^3/uL (4.0-10.0)
[2022-04-16 03:32] LABS: Alanine Aminotransferase 12 U/L (0-41); Albumin Level 2.2 g/dL (3.5-5.2); Alkaline Phosphatase 89 U/L (40-130); Aspartate Amino Transferase 17 U/L (0-40); Blood Urea Nitrogen 19 mg/dL (8-23); Carbon Dioxide 29 mmol/L (22-29); Chloride 99 mmol/L (98-107); Globulin 4.3 g/dL (1.3-4.6); Glucose 133 mg/dL (65-115); Magnesium 2.1 mg/dL (1.7-2.3); Osmolality Calculated 284 mOsm/kg (285-295); Phosphorus 2.5 mg/dL (2.5-4.5); Sodium 135 mmol/L (136-145); Total Bilirubin 0.4 mg/dL (0.15-1.2); Total Protein 6.5 g/dL (6.6-8.7)
[2022-04-16 04:27] LABS: NT Pro B Type Natriuretic Pept 3159 pg/mL (0-450)
[2022-04-16] MEDS: acetaminophen 325 mg Tablet 650 MG PO (04:33)
--- NOTE | 2022-04-16 07:17 | PM.PN ---
Subjective Subjective: Mike had an uneventful night. He was given 20 Lasix IV yesterday. There was no more shortness of breath. 1600 mL of urine output yesterday. He is fast asleep this morning. I note that the previous reported Staph aureus in 1 blood culture bottle has been reclassified to Staphylococcus haemolyticus. His other blood cultures are negative to date. He has not had any more atrial fibrillation. He is able to lie flat without any shortness of breath. Vitals/I&O/Wt Last Vital Signs Temp 98.1 F 04/16/22 04:00 Pulse 62 04/16/22 06:00 Resp 24 H 04/16/22 06:00 BP 120/66 04/16/22 06:00 Pulse Ox 93 04/16/22 06:00 O2 Del Method 04/16/22 06:00 O2 Flow Rate 2 04/16/22 06:00 04/15/22 04/16/22 04/16/22 22:59 06:59 14:59 Intake Total 50 / 560 230 / 790 Output Total 1600 / 1600 425 / 5 Balance -1550 / -1040 -195 / -1235 Weight last 48 hrs Weight 178 lb 8 oz Weight 182 lb 14.4 oz Physical Exam Narrative: GENERAL: In general he is sleeping on his left side flat in bed this morning HEENT: Exam within normal limits. NECK: Supple without jugular vein distention. The carotid upstroke is normal without bruits. BACK: Exam normal. LUNGS: Decreased breath sounds, occasional wheezes HEART: Regular rate and rhythm. ABDOMEN: Benign without organomegaly or tenderness. EXTREMITIES: No edema. NEUROLOGIC: Exam normal. SKIN: Unremarkable. Urinary Catheter Management: Beck: Cath Placed During This Visit: yes Reason for Continuing Indwelling Catheter: Accurate Measurement of Urinary Output in Critically Ill Patients Urinary Catheter Date of Insertion: 04/14/22 Urinary Catheter Time of Insertion: 21:30 Data 04/16/22 02:40 04/16/22 02:40 Micro: Microbiology 04/12/22 13:50 Blood Culture - Preliminary Blood Staphylococcus haemolyticus A&P Assessment and plan (1) Atrial fibrillation with RVR: (2) Physical deconditioning: (3) Acute CVA (cerebrovascular accident): (4) Right lower lobe pneumonia: Plan He can certainly be moved out of the intensive care unit. He is close to being able to go home. I would continue his cardiac medications as currently prescribed. Attestations Medical Necessity Statement*: Hospitalization for pneumonia, atrial fibrillation, stroke. Coding Level of Care Code Established Pt Acute Supervisor Wet Pour for [facility] Patient Type Established History Detailed Exam Detailed Medical Decision Making Moderate Complexity Diagnoses Atrial fibrillation with RVR I48.91 Physical deconditioning R53.81 Acute CVA (cerebrovascular accident) I63.9 Right lower lobe pneumonia J18.9
[2022-04-16] MEDS: clopidogrel 75 mg Tablet PO (08:25)
[2022-04-16] MEDS: metoprolol tartrate 25 mg Tablet PO (08:25)
[2022-04-16] MEDS: apixaban 5 mg Tablet PO (08:25)
[2022-04-16] MEDS: FUROsemide 10 mg/mL SDV 2mL 20 MG IVP (08:34)
[2022-04-16] MEDS: potassium chloride ER 20 mEq Tablet PO (08:34)
[2022-04-16 11:24] LABS: SARS Covid-2 Antigen negative (Negative)
--- NOTE | 2022-04-16 11:36 | P.DS_ITS ---
Discharge Providers Date of Admission: 04/12/22 15:22 Date of Discharge: April 16, 2022 Attending Provider at Admission: Junaid Joshua MD Attending Provider at Discharge: Osorio Villatoro MD Primary Care Provider: Gideon Yepez DO Diagnoses at Discharge Discharge Diagnosis (1) Atrial fibrillation with RVR: Status: Acute (2) Physical deconditioning: Status: Acute (3) Acute CVA (cerebrovascular accident): Status: Acute (4) Right lower lobe pneumonia: Status: Acute Reason for Visit Reason for Visit: N/V, weakness, fall, headpain Hospital Course Hospital Course Mike Ellison is a 81 year old male with a past medical history significant for osteoarthritis presented with nausea and emesis x2 days.? Patient was found to have right lower lobe pneumonia on admission, received broad-spectrum antibiotic therapy, overall clinically improved, remains afebrile on 2 L, discharged to group home facility on antibiotic therapy, inhaler therapy, oxygen therapy. Patient was found to have acute CVA on CT imaging on admission, Acute to subacute infarction in the left anterior temporal lobe, he had no focal neurol ogic deficits on admission, not a candidate for tPA, his timeframe of cva is unknown. Initially he was managed with aspirin, statin, Plavix, PT OT, speech therapy eval. He later developed A. fib with RVR during hospitalization, thus likely his CVA was an embolic phenomenon from subclinical A. fib. Patient will be discharged on Plavix, Eliquis, statin, with a close follow-up with neurology as outpatient. For his A. fib with RVR, cardiology was consulted, managed with metoprolol, Eliquis, overall clinically improved. Discharged with close follow-up with cardiology as outpatient. He was also found to have fluid overload during his hospitalization requiring 2 days of diuretic therapy Due to his physical deconditioning, osteoarthritis, discharged to group home facility for rehab, tramadol as needed for osteoarthritic pain he can participate in rehab Physical Exam Const: COMMON NORMALS: no acute distress and patient oriented x3 Neck/C-Spine: COMMON NORMALS: no JVD Resp: COMMON NORMALS: normal respiratory effort, No retractions, No use of accessory muscles and clear to auscultation bilaterally AUSCULTATION: clear to auscultation bilaterally Cardio: COMMON NORMALS: no JVD, regular rate, regular rhythm, S1 normal heart sound present and S2 normal heart sound present RATE: regular rate RHYTHM: regular rhythm HEART SOUNDS: S1 normal heart sound present and S2 normal heart sound present GI: COMMON NORMALS: Normal to inspection, nondistended, normoactive bowel sounds present and non-tender Extremity: COMMON NORMALS: no pedal edema Neuro: COMMON NORMALS: patient oriented x3 Psych: COMMON NORMALS: mental status grossly normal Urinary Catheter Management: Beck: Cath Placed During This Visit: yes Reason for Continuing Indwelling Catheter: Accurate Measurement of Urinary Output in Critically Ill Patients Urinary Catheter Date of Insertion: 04/14/22 Urinary Catheter Time of Insertion: 21:30 Discharge Data Studies Completed and Pending Completed Studies During Hospitalization Category Date Time Status CT head wo con* [id number] Stat Cat Scan 04/12/22 12:09 Completed XR chest 1V portable [id number] Stat Exams 04/12/22 12:09 Completed CV. echo complete* [id number] Routine Ultrasound 04/14/22 09:07 Completed US carotid duplex bilateral [CV carotid duplex BI* Ultrasound 04/15/22 13:18 Completed [id number]] Routine Pending at discharge Category Date Time Status Blood Culture Routine Lab 04/13/22 14:50 Results Blood Culture Stat Lab 04/12/22 13:52 Results Complete Blood Count w/Auto AM LABS Lab 04/17/22 04:00 Ordered Complete Blood Count w/Auto AM LABS Lab 04/18/22 04:00 Ordered Comprehensive Metabolic Panel AM LABS Lab 04/17/22 04:00 Ordered Comprehensive Metabolic Panel AM LABS Lab 04/18/22 04:00 Ordered Magnesium AM LABS Lab 04/17/22 04:00 Ordered Magnesium AM LABS Lab 04/18/22 04:00 Ordered NT Pro B Type Natriuretic Pept QAM Lab 04/17/22 06:00 Ordered NT Pro B Type Natriuretic Pept QAM Lab 04/18/22 06:00 Ordered Phosphorus AM LABS Lab 04/17/22 04:00 Ordered Phosphorus AM LABS Lab 04/18/22 04:00 Ordered Sputum Culture and Gram Stain Stat Lab 04/12/22 12:57 Uncollected Radiology Impressions Chest X-Ray 04/12/22 12:09 IMPRESSION: Right lower lobe pneumonia with small effusion Head CT 04/12/22 12:09 IMPRESSION: Acute to subacute infarction in the left anterior temporal lobe Laboratory Results WBC 10.6 10^3/uL (4.0-10.0) H 04/16/22 02:40 RBC 4.38 10^6/uL (4.1-5.3) 04/16/22 02:40 Hgb 12.4 g/dL (11.7-16.6) 04/16/22 02:40 Hct 39.1 % (42.0-52.0) L 04/16/22 02:40 MCV 89.3 fl (80-94) 04/16/22 02:40 MCH 28.3 pg (28.0-34.0) 04/16/22 02:40 MCHC 31.7 g/dL (30.0-36.0) 04/16/22 02:40 RDW 15.3 % (12.1-15.1) H 04/16/22 02:40 Plt Count 309 10^3/cmm (130-400) 04/16/22 02:40 MPV 10.0 fL (7.4-10.4) 04/16/22 02:40 Neut % (Auto) 78.9 % 04/16/22 02:40 Lymph % (Auto) 10.0 % 04/16/22 02:40 [place] % (Auto) 7.9 % 04/16/22 02:40 Eos % (Auto) 2.1 % 04/16/22 02:40 Baso % (Auto) 0.3 % 04/16/22 02:40 Neut # (Auto) 8.34 10^3/uL (1.8-7.7) H 04/16/22 02:40 Lymph # (Auto) 1.1 10^3/uL (0.8-4.8) 04/16/22 02:40 [place] # (Auto) 0.8 10^3/uL (0.2-0.9) 04/16/22 02:40 Eos # (Auto) 0.2 10^3/uL (0.0-0.8) 04/16/22 02:40 Baso # (Auto) 0.0 10^3/uL (0.0-0.1) 04/16/22 02:40 Nucleated RBC % (auto) 0 % 04/16/22 02:40 Nucleated RBCs # 0.0 /100WBC 04/16/22 02:40 Sodium 135 mmol/L (136-145) L 04/16/22 02:40 Potassium 4.0 mmol/L (3.5-5.1) 04/16/22 02:40 Chloride 99 mmol/L (98-107) 04/16/22 02:40 Carbon Dioxide 29 mmol/L (22-29) 04/16/22 02:40 Anion Gap 11.0 (5-19) 04/16/22 02:40 BUN 19 mg/dL (8-23) 04/16/22 02:40 Creatinine 0.7 mg/dL (0.7-1.2) 04/16/22 02:40 GFR Calculation Not Reportable 04/16/22 02:40 Glucose 133 mg/dL (65-115) H 04/16/22 02:40 Calculated Osmolality 284 mOsm/kg (285-295) L 04/16/22 02:40 Calcium 9.0 mg/dL (8.5-10.5) 04/16/22 02:40 Phosphorus 2.5 mg/dL (2.5-4.5) 04/16/22 02:40 Magnesium 2.1 mg/dL (1.7-2.3) 04/16/22 02:40 Total Bilirubin 0.4 mg/dL (0.15-1.2) 04/16/22 02:40 AST 17 U/L (0-40) 04/16/22 02:40 ALT 12 U/L (0-41) 04/16/22 02:40 Alkaline Phosphatase 89 U/L (40-130) 04/16/22 02:40 Troponin T Gen 5 ng/L 12 ng/L (0-15) 04/14/22 03:32 NT-Pro-B Natriuret Pep 3159 pg/mL (0-450) H 04/16/22 02:40 Total Protein 6.5 g/dL (6.6-8.7) L 04/16/22 02:40 Albumin 2.2 g/dL (3.5-5.2) L 04/16/22 02:40 Globulin 4.3 g/dL (1.3-4.6) 04/16/22 02:40 Urine Color Dark yellow (Yellow) 04/12/22 13:30 Urine Appearance Clear (CLEAR) 04/12/22 13:30 Urine pH 5 (5-7) 04/12/22 13:30 Ur Specific [place] 1.020 (1.005-1.030) 04/12/22 13:30 Urine Protein Neg (Negative) 04/12/22 13:30 Urine Glucose (UA) Norm (Normal) 04/12/22 13:30 Urine Ketones 1+ (Negative) H 04/12/22 13:30 Urine Blood Neg (Negative) 04/12/22 13:30 Urine Nitrate Negative (Negative) 04/12/22 13:30 Urine Bilirubin 2+ (Negative) H 04/12/22 13:30 Urine Urobilinogen 4 mg/dL (Negative) H 04/12/22 13:30 Ur Leukocyte Esterase Negative (Negative) 04/12/22 13:30 Vancomycin Trough 8.5 ug/mL (10-15) L 04/15/22 01:34 SARS-CoV-2 Ag (Rapid) negative (Negative) 04/16/22 10:18 Vitals Last Vital Signs Temp 98.1 F 04/16/22 04:00 Pulse 74 04/16/22 10:00 Resp 22 H 04/16/22 10:00 BP 111/53 04/16/22 10:00 Pulse Ox 90 04/16/22 10:00 O2 Del Method 04/16/22 08:00 O2 Flow Rate 2 04/16/22 08:00 Discharge Plan Discharge Patient Disposition: Xfer SNF Condition: Stable Prescriptions: New Eliquis 5 mg Tablet 5 mg PO BID@0900,2100 30 Days Qty: 60 0RF clopidogrel 75 mg Tablet 75 mg PO DAILY 30 Days Qty: 30 0RF tramadol 50 mg Tablet 25 mg PO Q6H PRN (Reason: Moderate Pain) 5 Days Qty: 10 0RF Isopto Tears 0.5 % Drops 1 drp eye-both Q4H PRN (Reason: Dry Eye(S)) 7 Days Qty: 15 0RF metoprolol tartrate 25 mg Tablet 25 mg PO BID 30 Days Qty: 60 0RF doxycycline hyclate 100 mg tablet 100 mg PO BID 5 Days Qty: 10 0RF albuterol sulfate 90 mcg/actuation HFA aerosol inhaler 1 inh inhalation Q6H PRN (Reason: shortness of breath or wheezing) Qty: 8.5 0RF benzonatate 100 mg capsule 100 mg PO TID PRN (Reason: cough) 7 Days Qty: 21 0RF Continued atorvastatin 40 mg tablet 40 mg PO BEDTIME trazodone 100 mg tablet 100 mg PO BEDTIME Discontinued ibuprofen 200 mg Tablet 400 mg PO Q6H PRN (Reason: Pain) Discharge Orders: Discharge Order (Routine); Ordered 04/16/22 Ordered By: Osorio Villatoro Referrals: [facility] [Outside] Kareen Conley MD [Physician] - 2 weeks Gideon Yepez DO [Primary Care Provider] - 1 week Rita Friedman MD [Physician] - 1 week Discharge Diet: Cardiac Discharge Activity: Resume usual activity Patient Instructions: Opioid Safety Activity Restrictions/Additional Instructions: - Please use antibiotic as prescribed -Please take blood thinner as prescribed -Please monitor for bloody or black stools if so go to the emergency room -Have patient home recheck hemoglobin in 48 hours -Monitor heart rate -Follow-up with cardiology in 1 week Discharge Attestations Time Spent in Discharge Care*: less than 30 min Quality Metrics Clinical Quality Measures [ Cerebrovascular Accident { Contraindication to Antithrombotic: None; antithrombotic prescribed; Contraindication to Anticoagulation: None; anticoagulation prescribed; Contraindication to Statin: None; Statin prescribed;}] Coding Level of Care Code Acute Chg FW DC note Diagnoses Atrial fibrillation with RVR I48.91 Physical deconditioning R53.81 Acute CVA (cerebrovascular accident) I63.9 Right lower lobe pneumonia J18.9
--- NOTE | 2022-04-16 13:28 | PC.NURSE ---
Patient discharging to [facility]. All IV's and castellanos removed. All prescriptions sent to pharmacy, all discharge instructions given to patient and family who verbalized understanding. Patient left hospital via W/C [id number].
== END 2022-04-16 13:26 | disposition skilled nursing facility (03) | DRG 193 ==
LOC: ER 13:45 → MEDSURG 15:23 → ICU 04-14 05:09
PROVIDERS: Internal Medicine; Admitting Provider Internal Medicine; Emergency Provider Family Medicine; PCP Family Medicine; Visit Provider Family Medicine
DX: J18.9 Pneumonia, unspecified organism (principal); I63.422 Cerebral infarction due to embolism of left anterior cerebral artery; W18.30XA Fall on same level, unspecified, initial encounter; M19.90 Unspecified osteoarthritis, unspecified site; Z96.643 Presence of artificial hip joint, bilateral; Z66 Do not resuscitate; I48.91 Unspecified atrial fibrillation; B95.8 Unspecified staphylococcus as the cause of diseases classified elsewhere; F32.A Depression, unspecified; E87.70 Fluid overload, unspecified; Z79.891 Long term (current) use of opiate analgesic
CPT/HCPCS: 36415; 51702; 70450; 71045; 80048; 80053; 80069; 80202; 81003; 82247; 83735; 83880; 84100; 84484; 85025; 86403; 87040; 87077; 87150; 87186; 87205; 87426; 87449; 93005; 93306; 93880; 96365; 96372; 96375; 97116; 97161; 97165; 97530; 99285; A4222; J0282; J0456; J0696; J1650; J1940; J1956; J2405; J3370; J3475; J3480; J3490; J7030; J7050; J7060; Q0144

== ENCOUNTER → 2022-05-09 08:25 | Outpatient (BNVA) | payer MEDICARE, OTHER, SELFPAY | PROVIDERS: PCP Family Medicine; Visit Provider Specialist | DX: G93.89 Other specified disorders of brain (principal); K59.00 Constipation, unspecified; D49.9 Neoplasm of unspecified behavior of unspecified site; R63.4 Abnormal weight loss; Z68.21 Body mass index [BMI] 21.0-21.9, adult | CPT/HCPCS: 99205 ==

== ENCOUNTER 2022-06-19 10:40 | Outpatient (CLI) | payer MEDICARE, OTHER, SELFPAY ==
--- NOTE | 2022-06-19 | MR_ITS ---
WS: [id number] MRI HEAD WITH CONTRAST TECHNIQUE: Sagittal T1, T2 axial, T2 axial FLAIR, axial susceptibility weighted imaging, axial diffus ion weighted images, and coronal T2 images were obtained. Pre and post-T1 axial and post T1 coronal i mages. ADC and FSPGR images. 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 Ventricular system and basal cisterns are patent. Diffuse subcortical edema involving the LEFT temporal lobe extending into the basal gangl ia and LEFT posterior lateral ventricle. Mild mass effect on the LEFT lateral ventricle. No significa nt midline shift. Mild effacement of the LEFT occipital and temporal horns. T2 signal abnormality ext ends about the occipital and temporal horns. Heterogeneously enhancing lesion inferior LEFT temporal lobe abutting the dura measures approximately 1.8 x 2.5 x 1.7 cm AP by transverse by craniocaudal. Di ffuse edema throughout the LEFT temporal lobe progressed compared to April 12, 2022. Findings comp atible with neoplasm. No other enhancing lesions. No hemosiderin on susceptibly weighted images. Moderate small vessel changes with moderate parenchyma l volume loss. Normal posterior fossa. Normal vascular flow voids at the skull base. No extra-axial f luid collections. Paranasal sinuses are well aerated. Mastoid air cells are well aerated. Normal opti c chiasm and pituitary infundibulum. MR/MR head wo/w con [id number] IMPRESSION: 1. Enhancing 1.8 x 2.5 x 1.7 cm mass in the LEFT anterior temporal lobe abutti ng the dura. Associated dural thickening. Findings compatible with neoplasm. Di fferential considerations include primary tumor such as astrocytoma versus jose tary metastasis. 2. No other enhancing lesions. 3. Diffuse edema within the LEFT temporal lobe progressed compared to April 12, 2022. This extends into the LEFT posterior temporal lobe and basal ganglia . T2 signal abnormality extends about the LEFT occipital and temporal lobes wit h mild mass effect in the LEFT lateral ventricle and temporal occipital horns. 4. Moderate small vessel changes with moderate parenchymal volume loss. 5. No hemosiderin on susceptibly weighted images. 6. No restricted diffusion to suggest acute ischemia. 7. No other visualized enhancing lesions. Message LEFT for Kareen Conley MD at 06/19/2022 2:46 PM.
[2022-06-19] MEDS: gadobenate dimeglumine 20 mL vial IV (12:22)
== END 2022-06-19 10:41 | disposition home or self-care (01) ==
PROVIDERS: PCP Family Medicine; Visit Provider Specialist
DX: C71.2 Malignant neoplasm of temporal lobe (principal)
CPT/HCPCS: 70553; A9577

== ENCOUNTER → 2022-06-25 08:11 | Outpatient (BNVA) | payer MEDICARE, OTHER, SELFPAY | PROVIDERS: PCP Family Medicine; Visit Provider Specialist | DX: G93.89 Other specified disorders of brain (principal); J44.9 Chronic obstructive pulmonary disease, unspecified; I48.91 Unspecified atrial fibrillation | CPT/HCPCS: 99215 ==

== ENCOUNTER 2022-07-05 09:33 | Outpatient (CLI) | payer MEDICARE, OTHER, SELFPAY ==
--- NOTE | 2022-07-05 09:50 | XR_ITS ---
WS: [id number] XR chest 2V* [id number] REASON FOR EXAM: decreased lung sounds in right base, hst of pneumonia FINDINGS: Compared to previous examination of 04/12/2022, there continues to be a right pleural effusion and con solidation in the right lower lobe. The fusion appears to be larger than on the previous examination. There is also increased lung consolidation. No other interval change. XR/XR chest 2V* [id number] IMPRESSION: Progression of effusion and lung consolidation in the right lower chest as abov e.
== END 2022-07-05 09:34 | disposition home or self-care (01) ==
PROVIDERS: PCP Family Medicine; Visit Provider Family Medicine
DX: R06.89 Other abnormalities of breathing; J90 Pleural effusion, not elsewhere classified
CPT/HCPCS: 71046

== ENCOUNTER → 2022-07-22 13:29 | Outpatient (BNVA) | payer MEDICARE, OTHER, SELFPAY | PROVIDERS: PCP Family Medicine; Visit Provider Specialist | DX: G93.89 Other specified disorders of brain (principal); J18.9 Pneumonia, unspecified organism; F32.A Depression, unspecified | CPT/HCPCS: 99214 ==

== ENCOUNTER 2022-07-25 19:39 | Emergency (ER) | payer MEDICARE, OTHER, SELFPAY ==
[2022-07-25 19:43] VITALS: BP 101/64; PULSE 82; RESP 16; TEMP 36.7; O2SAT 93; BMI 22.6
--- NOTE | 2022-07-25 19:49 | CTR_ITS ---
PROCEDURE INFORMATION: Exam: CT Head Without Contrast Exam date and time: 07/25/2022 8:22 PM Age: 81 years old Clinical indication: Altered mental status/memory loss; Confusion or disorientation; Patient HX: Worsening general weakness and confusion per family. Reported history of brain tumor with unspecified location. ; Additional info: AMS TECHNIQUE: Imaging protocol: Computed tomography of the head without contrast. Radiation optimization: All CT scans at this facility use at least one of these dose optimization techniques: automated exposure control; mA and/or kV adjustment per patient size (includes targeted exams where dose is matched to clinical indication); or iterative reconstruction. REPORTING DATA: Count of CT and Cardiac NM exams in prior 12 months: This patient has received [address] and 0 known cardiac nuclear medicine studies in the 12 months prior to the current study. COMPARISON: MR head wo/w con [id number] 06/19/2022 11:45 AM RADIATION DOSE METRICS: Total DLP (mGy-cm): 1175.61 FINDINGS: Brain: Probable 1.5 cm left lateral temporal lobe mass inferiorly on series 6, image 11 is unchanged. Surrounding edema in the left temporal lobe extending to the posterior limb of the internal capsule and subinsular white matter is similar to the comparison MRI no significant mass effect or midline shift. Mild involutional white matter changes are similar with stable mild volume loss of the brain. No acute infarct. No acute hemorrhage. Cerebral ventricles: No ventriculomegaly. Paranasal sinuses: Moderate mucosal thickening present bilaterally in the maxillary sinuses with frothy secretions and air-fluid levels. Mild bilateral ethmoid sinus opacification. Mastoid air cells: Visualized mastoid air cells are well aerated. Bones/joints: Unremarkable. No acute fracture. Soft tissues: Unremarkable. CT/CT head wo con* [id number] IMPRESSION: 1. No acute intracranial findings. 2. Left temporal lobe mass with surrounding edema is similar in appearance to the 06/19/2022 MRI. No definite interval change. 3. Acute bilateral maxillary sinusitis changes.
--- NOTE | 2022-07-25 19:50 | XRR_ITS ---
PROCEDURE INFORMATION: Exam: XR Chest Exam date and time: 07/25/2022 8:23 PM Age: 81 years old Clinical indication: Other: Ams/seizure TECHNIQUE: Imaging protocol: Radiologic exam of the chest. Views: 1 view. COMPARISON: CR XR chest 2V* [id number] 07/05/2022 9:58 AM FINDINGS: Lungs: Unremarkable. No consolidation. Pleural spaces: Possible trace right pleural effusion. Heart/Mediastinum: Unremarkable. No cardiomegaly. Diaphragm: Elevated right hemidiaphragm with adjacent scarring is similar. Bones/joints: Unremarkable. XR/XR chest 1V portable [id number] IMPRESSION: 1. No acute pulmonary disease. 2. Possible trace right pleural effusion.
--- NOTE | 2022-07-25 19:50 | ECG_ITS ---
[facility] Test Date: 2022-07-25 Pat Name: Mike Ellison Department: Room: Gender: Male Policy Checker: : 1940 Requested By: Medardo Newsome Order Number: [id number] Mallika MD: Annie Rodarte M.D. Measurements Intervals [place] Rate: 81 P: 49 WI: 144 QRS: 56 QRSD: 81 T: 85 QT: 350 QTc: 407 Interpretive Statements SINUS RHYTHM NONSPECIFIC ST & T-WAVE ABNORMALITY Compared to ECG 04/14/2022 04:26:28 Atrial fibrillation no longer present T-wave abnormality still present Electronically Signed On 07-25-2022 22:54:45 CDT by Annie Rodarte M.D. [email or web address]
[2022-07-25 20:25] LABS: Hematocrit 45.2 % (42.0-52.0); Mean Corpuscular HGB Conc 33.2 g/dL (30.0-36.0); Mean Corpuscular Hemoglobin 29.5 pg (28.0-34.0); Mean Corpuscular Volume 88.8 fl (80-94); Mean Platelet Volume 9.1 fL (7.4-10.4); Platelet Count 253 10^3/cmm (130-400); Red Blood Count 5.09 10^6/uL (4.1-5.3); Red Cell Distribution Width 17.2 % (12.1-15.1); White Blood Count 13.1 10^3/uL (4.0-10.0)
[2022-07-25 20:42] LABS: Alanine Aminotransferase 36 U/L (0-41); Albumin Level 2.8 g/dL (3.5-5.2); Alkaline Phosphatase 74 U/L (40-130); Anion Gap 15.7 (5-19); Aspartate Amino Transferase 19 U/L (0-40); Blood Urea Nitrogen 26 mg/dL (8-23); Carbon Dioxide 24 mmol/L (22-29); Chloride 95 mmol/L (98-107); Globulin 3.9 g/dL (1.3-4.6); Glucose 156 mg/dL (65-115); Osmolality Calculated 278 mOsm/kg (285-295); Potassium 4.7 mmol/L (3.5-5.1); Sodium 130 mmol/L (136-145); Total Bilirubin 1.2 mg/dL (0.15-1.2); Total Protein 6.7 g/dL (6.6-8.7)
[2022-07-25 20:59] VITALS: BP 108/64; PULSE 79; O2SAT 94
--- NOTE | 2022-07-25 20:59 | W.ED.WEAKNES ---
HPI - Weakness General: Chief complaint: Weakness Stated complaint: possible seizure Time Seen by Provider: 07/25/22 20:39 Source: family Mode of arrival: ambulatory Limitations: altered mental status History of Present Illness: 81-year-old male who was recently diagnosed with a brain tumor he is scheduled to go to [facility] next week per family member he been doing well but today he is became altered he has been extremely weak not able to walk patient's not able ambulate here he is not really able to give me much history at all he is able to tell me his name and that is about it he is quite confused. No fever. Review of Systems General: Reports: ROS unobtainable due to mental status PFSH ED PFSH: Medical History Osteoarthritis Surgical History History of total left hip arthroplasty History of total right hip arthroplasty Family History Father Stroke Social History Smoking and tobacco status: never smoked Alcohol intake: never Physical Exam Const: COMMON NORMALS: alert; negative for patient oriented x3 ORIENTATION/CONSCIOUSNESS: Yes oriented to person; not oriented to place and not oriented to time HENMT: COMMON NORMALS: normocephalic and atraumatic HEAD & SCALP: normocephalic and atraumatic Eye: COMMON NORMALS: Equal, round and reactive pupils present and EOMs intact bilaterally PUPIL: Yes Equal, round and reactive pupils present Neck/C-Spine: COMMON NORMALS: full ROM and supple Chest: COMMONS NORMALS: normal inspection of the chest and normal palpation of entire chest wall Resp: COMMON NORMALS: normal respiratory effort, No retractions, No use of accessory muscles and clear to auscultation bilaterally AUSCULTATION: clear to auscultation bilaterally Cardio: COMMON NORMALS: regular rate, regular rhythm and No murmurs present (Cardio) RATE: regular rate RHYTHM: regular rhythm GI: COMMON NORMALS: Normal to inspection, nondistended, normoactive bowel sounds present, Soft to palpation, non-tender and no masses PALPATION: Yes Soft to palpation Extremity: COMMON NORMALS: normal to inspection and full ROM Neuro: COMMON NORMALS: moves all extremities and no focal motor deficits; negative for patient oriented x3 SENSORIUM/ORIENTATION: Yes alert, Yes oriented to person, No oriented to place and No oriented to time Psych: COMMON NORMALS: cooperative; negative for mental status grossly normal Skin: COMMON NORMALS: no rashes or lesions noted and no wounds GENERAL SKIN EXAM: no rashes or lesions noted Course Vital Signs: Vital signs: Vital Signs Temperature 98.0 F 07/25/22 19:43 Pulse Rate 68 07/25/22 22:53 Respiratory Rate 18 07/25/22 22:53 Blood Pressure 112/66 07/25/22 22:30 Pulse Oximetry 95 07/25/22 22:53 Oxygen Delivery Me thod 07/25/22 22:53 MDM - Weakness Medical Decision Making Patient presents here with confusion along with weakness he does have a history of brain tumor as well he is scheduled for surgery on Friday at [facility] I spoke to [facility] and will transfer there for higher level of care due to his new level of consciousness change. Lab Data 07/25/22 20:05 07/25/22 20:[address] 07/25/22 19:49 IMPRESSION: 1. No acute intracranial findings. 2. Left temporal lobe mass with surrounding edema is similar in appearance to the 06/19/2022 MRI. No definite interval change. 3. Acute bilateral maxillary sinusitis changes. Chest X-Ray 07/25/22 19:50 IMPRESSION: 1. No acute pulmonary disease. 2. Possible trace right pleural effusion. Laboratory Results WBC 13.1 10^3/uL (4.0-10.0) H 07/25/22 20:05 RBC 5.09 10^6/uL (4.1-5.3) 07/25/22 20:05 Hgb 15.0 g/dL (11.7-16.6) 07/25/22 20:05 Hct 45.2 % (42.0-52.0) 07/25/22 20:05 MCV 88.8 fl (80-94) 07/25/22 20:05 MCH 29.5 pg (28.0-34.0) 07/25/22 20:05 MCHC 33.2 g/dL (30.0-36.0) 07/25/22 20:05 RDW 17.2 % (12.1-15.1) H 07/25/22 20:05 Plt Count 253 10^3/cmm (130-400) 07/25/22 20:05 MPV 9.1 fL (7.4-10.4) 07/25/22 20:05 Lymph % (Auto) Not Reportable 07/25/22 20:05 [place] % (Auto) Not Reportable 07/25/22 20:05 Lymph # (Auto) Not Reportable 07/25/22 20:05 [place] # (Auto) Not Reportable 07/25/22 20:05 Total Counted 100 (0-100) 07/25/22 20:05 Atypical Lymphs % 0.0 % (0-5) 07/25/22 20:05 Absolute Neutrophils 11.9 10^3/cmm (1.4-6.5) H 07/25/22 20:05 Segmented Neutrophils 91 % 07/25/22 20:05 Abs Segm Neuts (Man) 11.9 10/cmm (1.6-7.1) H 07/25/22 20:05 Band Neutrophils 0.0 % 07/25/22 20:05 Abs Band Neuts (Man) 0.0 10^3/cmm (0.0-1.2) 07/25/22 20:05 Absolute Lymphocytes 0.5 10^3/cmm (1.2-3.4) L 07/25/22 20:05 Lymphocytes (Manual) 4 % 07/25/22 20:05 Monocytes (Manual) 1.0 % 07/25/22 20:05 Absolute Monocytes 0.1 10^3/cmm (0.1-0.6) 07/25/22 20:05 Eosinophils (Manual) 1 % 07/25/22 20:05 Absolute Eosinophils 0.1 10^3/cmm (0.0-0.7) 07/25/22 20:05 Basophils (Manual) 0.0 % 07/25/22 20:05 Absolute Basophils 0.0 10^3/cmm (0.0-0.2) 07/25/22 20:05 Metamyelocytes 2.0 % 07/25/22 20:05 Myelocytes 1.0 % 07/25/22 20:05 Platelet Estimate Normal (Normal) 03/23/23 20:05 Sodium 130 mmol/L (136-145) L 07/25/22 20:05 Potassium 4.7 mmol/L (3.5-5.1) 07/25/22 20:05 Chloride 95 mmol/L (98-107) L 07/25/22 20:05 Carbon Dioxide 24 mmol/L (22-29) 07/25/22 20:05 Anion Gap 15.7 (5-19) 07/25/22 20:05 BUN 26 mg/dL (8-23) H 07/25/22 20:05 Creatinine 0.8 mg/dL (0.7-1.2) 07/25/22 20:05 GFR Calculation Not Reportable 07/25/22 20:05 Glucose 156 mg/dL (65-115) H 07/25/22 20:05 Calculated Osmolality 278 mOsm/kg (285-295) L 07/25/22 20:05 Calcium 9.0 mg/dL (8.5-10.5) 07/25/22 20:05 Total Bilirubin 1.2 mg/dL (0.15-1.2) 07/25/22 20:05 AST 19 U/L (0-40) 07/25/22 20:05 ALT 36 U/L (0-41) 07/25/22 20:05 Alkaline Phosphatase 74 U/L (40-130) 07/25/22 20:05 Total Protein 6.7 g/dL (6.6-8.7) 07/25/22 20:05 Albumin 2.8 g/dL (3.5-5.2) L 07/25/22 20:05 Globulin 3.9 g/dL (1.3-4.6) 07/25/22 20:05 Urine Color Carrie (Yellow) 07/25/22 22:22 Urine Appearance Clear (CLEAR) 07/25/22 22:22 Urine pH 6.5 (5-7) 07/25/22 22:22 Ur Specific [place] 1.015 (1.005-1.030) 07/25/22 22:22 Urine Protein Neg (Negative) 07/25/22 22:22 Urine Glucose (UA) Norm (Normal) 07/25/22 22:22 Urine Ketones 1+ (Negative) H 07/25/22 22:22 Urine Blood Neg (Negative) 07/25/22 22:22 Urine Nitrate Negative (Negative) 07/25/22 22:22 Urine Bilirubin 2+ (Negative) H 07/25/22 22:22 Urine Urobilinogen 1+ mg/dL (Negative) H 07/25/22 22:22 Ur Leukocyte Esterase Trace (Negative) H 07/25/22 22:22 Urine RBC 0-4 /hpf (0-2) H 07/25/22 22:22 Urine WBC 0-4 /hpf (0-5) H 07/25/22 22:22 Ur Squamous Epith Cells 0-4 /hpf (0-5) H 07/25/22 22:22 Amorphous Sediment Not Reportable 07/25/22 22:22 Urine Bacteria None /hpf (NONE) 07/25/22 22:22 Urine Mucus 1+ /hpf 07/25/22 22:22 Discharge Plan Discharge Patient Disposition: Xfer Short-Term Hosp Clinical Impression: Brain tumor, Weakness, Altered mental status Condition: Stable Prescriptions: No Action acetaminophen [Tylenol Extra Strength] 500 mg tablet 500 mg PO ONCE Qty: 1 0RF (DME) [facility]yah [facility] See Rx Instructions .Route Qty: 1 0RF Rx Instructions: As directed olanzapine [Zyprexa] 5 mg tablet 5 mg PO ONCE 90 Days Qty: 90 3RF All Day Allergy (cetirizine) 10 mg capsule 10 mg PO DAILY PRN (Reason: allergy symptoms) Qty: 30 3RF azithromycin 250 mg tablet See Rx Instructions PO .COMPLEX Qty: 6 0RF Rx Instructions: For 250 mg dose pack: take 500 mg today (day 1), then 250 mg for 4 days (days 2-5) PO cefdinir 300 mg capsule 300 mg PO Q12H Qty: 14 0RF albuterol sulfate 2.5 mg /3 mL (0.083 %) solution for nebulization 2.5 mg inhalation Q4H PRN (Reason: shortness of breath or wheezing) Qty: 75 1RF dexamethasone 4 mg tablet 4 mg PO Q6H Qty: 120 0RF Rx Instructions: qid for 2 d, then tid for 2 d then bid atorvastatin 40 mg tablet 40 mg PO DAILY Qty: 90 3RF metoprolol tartrate 25 mg tablet 25 mg PO BID Qty: 180 3RF clopidogrel 75 mg tablet 75 mg PO DAILY Qty: 90 3RF Eliquis 5 mg tablet 5 mg PO BID Qty: 180 1RF albuterol sulfate 90 mcg/actuation HFA aerosol inhaler 1 inh inhalation Q6H PRN (Reason: shortness of breath or wheezing) Qty: 8.5 0RF Referrals: Gideon Yepez DO [Primary Care Provider] - Coding Level of Care Code ED Manager Operating for Bisi Serrano
[2022-07-25 21:10] VITALS: PULSE 77; O2SAT 94
[2022-07-25 21:23] LABS: Absolute Eosinophils 0.1 10^3/cmm (0.0-0.7); Absolute Neutrophil 11.9 10^3/cmm (1.4-6.5); Absolute Segmented Neutrophil 11.9 10/cmm (1.6-7.1); Eosinophils 1 %; Lymphocytes 4 %; Lymphocytes Absolute 0.5 10^3/cmm (1.2-3.4); Monocytes Absolute 0.1 10^3/cmm (0.1-0.6); Platelet Estimate Normal (Normal); Segmented Neutrophils 91 %; Total Cells Counted 100 (0-100)
[2022-07-25 22:30] VITALS: BP 112/66
[2022-07-25 22:35] LABS: Glucose Urine UA Norm (Normal); Protein Urine Neg (Negative); Specific Gravity, Urine 1.015 (1.005-1.030); Urine Appearance Clear (CLEAR); Urine Color Orange (Yellow); pH Urine 6.5 (5-7)
[2022-07-25 22:36] LABS: Add Urine Microscopic? YES; Bilirubin Urine 2+ (Negative); Blood Urine Neg (Negative); Ketones Urine 1+ (Negative); Leukocyte Esterase Urine Trace (Negative); Nitrate Urine Negative (Negative); Urobilinogen Urine 1+ mg/dL (Negative)
[2022-07-25 22:37] LABS: Mucus Urine 1+ /hpf; RBC Urine 0-4 /hpf (0-2); Squamous Epithelial Cell Urine 0-4 /hpf (0-5); WBC Urine 0-4 /hpf (0-5)
--- NOTE | 2022-07-25 22:40 | PC.NURSE ---
Spoke with Anali at [facility] transfer center. Pt updated given at this time.
[2022-07-25] MEDS: dexamethasone 10 mg/mL INJ IVP (22:49)
[2022-07-25 22:53] VITALS: PULSE 68; RESP 18; O2SAT 95
[2022-07-26] VITALS (10 sets, daily range): BP systolic 96–137; BP diastolic 49–78; PULSE 62–88; RESP 16–18; O2SAT 95–99
--- NOTE | 2022-07-26 01:21 | PC.NURSE ---
Pt stated he is okay with us contacting Yanira Hilton for any needs. Her contact information is [phone]. Yanira states she is his POA.
[2022-07-26] MEDS: sodium chloride 0.9% 1,000 ML 999 ML IV (06:09)
[2022-07-26] MEDS: dexamethasone 4 mg/mL INJ IVP (06:28)
== END 2022-07-26 07:55 | disposition short-term general hospital (02) ==
PROVIDERS: Emergency Provider Emergency Medicine; PCP Family Medicine
DX: D49.6 Neoplasm of unspecified behavior of brain (principal); R41.82 Altered mental status, unspecified; R53.1 Weakness; Z79.01 Long term (current) use of anticoagulants
CPT/HCPCS: 51702; 70450; 71045; 80053; 81001; 85007; 85025; 93005; 96365; 96366; 96375; 96376; 99285; J1100; J1953; J7030